=== PATIENT | male | born 1940 | race Caucasian/White ===

== ENCOUNTER → 2018-04-07 | Outpatient (REF) | payer MEDICARE ==
[2018-04-07 10:22] LABS: URINE BILIRUBIN - DIPSTICK NEGATIVE (NEGATIVE); URINE BLOOD DIPSTICK NEGATIVE (NEGATIVE); URINE COLOR YELLOW; URINE GLUCOSE - DIPSTICK NEGATIVE (NEGATIVE); URINE KETONE TRACE mg/dL (NEGATIVE); URINE LEUK ESTERASE NEGATIVE (Negative); URINE NITRITE - DIPSTICK NEGATIVE (Negative); URINE PROTEIN - DIPSTICK NEGATIVE (NEG-TRACE); URINE SPECIFIC GRAVITY 1.025; URINE UROBILINOGEN - DIPSTICK 0.2 E.U./dL (0.2)
[2018-04-07 10:29] LABS: URINE CLARITY CLEAR
== END | disposition home or self-care (01) ==
LOC: LAB 09:45
PROVIDERS: ATTEND Nurse Practitioner
DX: R10.31 Right lower quadrant pain (principal)

== ENCOUNTER → 2018-04-13 | Outpatient (REF) | payer MEDICARE ==
[2018-04-13 09:25] LABS: HEMATOCRIT 32.7 % (39.0-50.0); HEMOGLOBIN 9.7 g/dl (14.0-18.0); MEAN CELL VOLUME 83.2 fL CALC (80.0-100.0); MEAN CORPUSCULAR HGB 24.7 pG CALC (26.0-32.0); MEAN CORPUSCULAR HGB CONC 29.7 g/L CALC (32.0-36.0); PLATELET COUNT 220 thou/uL (130-400); RED BLOOD COUNT 3.93 mill/uL (4.70-6.10)
[2018-04-13 10:42] LABS: ALBUMIN 4.2 g/dL (3.2-5.0); ANION GAP 15 (6-22 (CALC)); BILIRUBIN, TOTAL 0.6 mg/dL (0.0-1.4); BUN 19 mg/dL (8-23); BUN/CREATININE RATIO 22 (12-20 (CALC)); CALCULATED LDLCHOLESTEROL 89 mg/dL (62-129 (CALC)); CARBON DIOXIDE 29 mmol/l (22-30); CHLORIDE 103 mmol/l (95-108); CHOLESTEROL HDL RATIO 5.8 (<4.4 (CALC)); CREATININE 0.9 mg/dL (0.7-1.3); GFR > 60 ML/MIN (>=60 (CALC)); GFR FOR AFR.AMER. > 60 ML/MIN (>=60 (CALC)); HDL CHOLESTEROL 25 mg/dL (>=40); POTASSIUM 4.9 mmol/l (3.5-5.1); SGOT/AST 29 u/l (19-48); SODIUM 142 mmol/l (137-146); TOTAL CHOLESTEROL 142 mg/dl (0-199); TOTAL PROTEIN 7.7 g/dL (6.3-8.2); TOTAL TRIGLYCERIDES 143 mg/dl (30-149); VLDL CHOLESTROL 29 mg/dl (0-38 (CALC))
[2018-04-13 10:49] LABS: ALKALINE PHOSPHATASE 102 u/l (38-126)
[2018-04-13 10:54] LABS: IMMATURE GRANULOCYTES 15.6 % (0.0-5.0); MANUAL DIFFERENTIAL YES
[2018-04-13 10:55] LABS: IMMATURE CELLS 6 %
[2018-04-13 11:10] LABS: TSH, 3RD GENERATION 2.77 uIU/mL (0.47 - 4.68)
[2018-04-13 11:34] LABS: BAND 9 % (0-8)
== END | disposition home or self-care (01) ==
LOC: LAB 08:52
PROVIDERS: ATTEND Nurse Practitioner
DX: D72.829 Elevated white blood cell count, unspecified (principal); E78.5 Hyperlipidemia, unspecified

== ENCOUNTER 2018-06-05 10:24 | Inpatient (IN) | payer MEDICARE ==
[~2018-06-05] VITALS: Ht 172.7 cm; Wt 55.7 kg
--- NOTE | 2018-06-05 10:41 | NUR ---
I SPOKE WITH NICKY AT [facility]. SHE VERIFIED THE CONSULTATION FOR @10:30 AM.
[2018-06-05 10:42] VITALS: BP 124/54
--- NOTE | 2018-06-05 11:07 | NUR ---
PT HAD COME IN A DIRECT ADMIT FROM OFFICE. PT CAME IN VIA WHEELCHAIR. ASSESSMENT DONE. PT IS A&O X3. PT DENIES PAIN AT THIS TIME. PT STATED HE TOLD DR. DE LEON THAT TUESDAY HE HAD A BM BLACK. PT STATED FOR A FEW WEEKS NOW HE HAS HAD A POOR APPETITE. NS 80ML/HR INFUSING WELL. TELE IN PLACE. SAFETY PRECAUTIONS REINFORCED AND CALL LIGHT IN REACH. IN ROOM.
[2018-06-05] MEDS ORDERED: TAMSULOSIN0.4 MG PO (11:22)
[2018-06-05 11:43] LABS: HEMATOCRIT 26.7 % (39.0-50.0); HEMOGLOBIN 7.8 g/dl (14.0-18.0); MEAN CELL VOLUME 78.8 fL CALC (80.0-100.0); MEAN CORPUSCULAR HGB CONC 29.2 g/L CALC (32.0-36.0); RED BLOOD COUNT 3.39 mill/uL (4.70-6.10); RED CELL DISTRI WIDTH 23.7 % (11.5-15.5)
[2018-06-05 12:03] LABS: IMMATURE GRANULOCYTES 8.8 % (0.0-5.0); PLATELET COUNT 338 thou/uL (130-400)
[2018-06-05 12:06] LABS: MANUAL DIFFERENTIAL YES
[2018-06-05 12:09] LABS: BAND 5 % (0-8)
[2018-06-05 12:10] LABS: POLYCHROMASIA FEW
[2018-06-05 12:31] LABS: ANION GAP 17 (6-22 (CALC)); BUN 19 mg/dL (8-23); BUN/CREATININE RATIO 25 (12-20 (CALC)); CARBON DIOXIDE 25 mmol/l (22-30); CHLORIDE 100 mmol/l (95-108); CREATININE 0.8 mg/dL (0.7-1.3); GFR > 60 ML/MIN (>=60 (CALC)); GFR FOR AFR.AMER. > 60 ML/MIN (>=60 (CALC)); POTASSIUM 4.7 mmol/l (3.5-5.1); SODIUM 137 mmol/l (137-146)
--- NOTE | 2018-06-05 12:35 | NUR ---
DR. HERRERA AT BEDSIDE TO DISCUSS POC WITH PT.
[2018-06-05 12:55] LABS: URINE BILIRUBIN - DIPSTICK NEGATIVE (NEGATIVE); URINE BLOOD DIPSTICK NEGATIVE (NEGATIVE); URINE COLOR YELLOW; URINE GLUCOSE - DIPSTICK NEGATIVE (NEGATIVE); URINE KETONE NEGATIVE (NEGATIVE); URINE LEUK ESTERASE NEGATIVE (NEGATIVE); URINE NITRITE - DIPSTICK NEGATIVE (Negative); URINE PROTEIN - DIPSTICK NEGATIVE (NEG-TRACE)
--- NOTE | 2018-06-05 14:41 | NUR ---
DR. ANGLIN AT BEDSIDE TO ASSESS PT AND DISCUSS POC WITH PT.
[2018-06-05 16:00] VITALS: BP 131/62
--- NOTE | 2018-06-05 16:00 | NUR ---
PT CONTINUE TO DRINK THE NUTYLELY. PT DENIES PAIN AT THIS TIME. CALL LIGHT IN REACH.
[2018-06-05 20:00] VITALS: BP 127/71
--- NOTE | 2018-06-05 20:10 | NUR ---
PT SITTING ON BSC. PT STATES "I DON'T THINK I'M DONE, WHEN I'M FINISHED I'D LIKE TO BE CLEANED UP, I'LL CALL WHEN I'M FINISHED" CALL LIGHT WITHIN REACH. SAFETY PRECAUTIONS IN PLACE. WILL CONTINUE TO MONITOR.
[2018-06-06] VITALS (18 sets, daily range): BP systolic 123–143; BP diastolic 50–69
--- NOTE | 2018-06-06 01:21 | NUR ---
REPORT RECIEVED HARJIT THOMASON RN. PT SITTING ON BSC, ALERT AND ORIENTED. PT DENIES ANY NEEDS AT THIS TIME. SAFETY PRECAUTIONS IN PLACE. CALL MOORE WITHIN REACH. WILL CONTINUE TO MONITOR.
--- NOTE | 2018-06-06 01:45 | NUR ---
PT RESTING IN BED. PT ASKES "IS IT TIME FOR THE ENDOSCOPY?". EDUCATED PT ON PLAN OF CARE. SAFETY PRECAUTIONS IN PLACE. WILL CONTINUE TO MONITOR.
--- NOTE | 2018-06-06 05:23 | NUR ---
PT RESTING IN BED. ALERT AND ORIENTED. PT DENIES ANY NEEDS AT THIS TIME, PT ENCOURAGED TO US CALLL MOORE IF NEEDS SHOULD ARISE. SAFETY PRECAUTIONS IN PLACE WILL CONTINUE TO MONITOR.
[2018-06-06 06:41] LABS: HEMATOCRIT 23.2 % (39.0-50.0); MEAN CELL VOLUME 79.2 fL CALC (80.0-100.0); MEAN CORPUSCULAR HGB 22.9 pG CALC (26.0-32.0); MEAN CORPUSCULAR HGB CONC 28.9 g/L CALC (32.0-36.0); RED BLOOD COUNT 2.93 mill/uL (4.70-6.10); RED CELL DISTRI WIDTH 23.8 % (11.5-15.5)
[2018-06-06 06:44] LABS: HEMOGLOBIN 6.7 g/dl (14.0-18.0); IMMATURE GRANULOCYTES 8.3 % (0.0-5.0)
[2018-06-06 06:45] LABS: MANUAL DIFFERENTIAL YES; PLATELET COUNT 265 thou/uL (130-400)
--- NOTE | 2018-06-06 06:45 | NUR ---
PT REPORT RECIEVED FROM HAYDEE PEREZ. PT RESTING. NO S/S OF DISTRESS. CALL LIGHT IN REACH. WILL CONTINUE TO MONITOR.
--- NOTE | 2018-06-06 07:00 | NUR ---
HAYDEE PEREZ CALLED DR. DONATO REGARDING PT HGB BEING 6.7. ANA STATES WOULD LIKE 1 UNIT PRBC INFUSED. HAYDEE PEREZ STATES SHE WILL PUT ORDERS IN NOW. WILL CONTINUE TO MONITOR.
--- NOTE | 2018-06-06 07:06 | NUR ---
CALL RECIVED FROM ENMA IN LAB FOR A CRITICAL LAB VALUE WBC 39.0, HGB 6.7. DR DONATO NOTIFIED. NEW ORDERS OBTAINED TO GIVE I UNIT OF BLOOD.
--- NOTE | 2018-06-06 08:40 | NUR ---
PT A/O X3. SPEECH IS CLEAR. RESP EVEN AND UNLABORED. LUNG SOUNDS CLEAR. TELE IN PLACE. BOWEL SOUNDS ACTIVE X4. STRONG RADIAL AND PEDAL PULSES. #22 LFA NS @80. SITE APPEARS HEALTHY. SKIN INTACT. PT DENIES ANY PAIN OR NEEDS. POC DISCUSSED. SAFETY PRECAUTIONS IN PLACE. CALL LIGHT IN REACH. WILL CONTINUE TO MONITOR.
--- NOTE | 2018-06-06 08:50 | NUR ---
PT TRANSPORTED TO OR VIA STRETCHER ACCOMPIANED BY OR NURSES IN STABLE CONDITION
--- NOTE | 2018-06-06 11:15 | NUR ---
PT TRANSPORTED BACK FROM OR VIA STRETCHER ACCOMPIANED BY OR NURSES IN STABLE CONDITION. PT ADJUSTED IN BED FOR COMFORT. VS BEING TAKEN. CALL LIGHT IN REACH. WILL CONTINUE TO MONITOR.
--- NOTE | 2018-06-06 12:50 | NUR ---
PT RESTING IN BED. NO C/O PAIN OR NEEDS. TELE IN PLACE. BSC NEAR BED. CALL LIGHT IN REACH. WILL CONTINUE TO MONITOR.
[2018-06-06] MEDS ORDERED: ALEVE220 M2 PO (13:25)
--- NOTE | 2018-06-06 13:55 | NUR ---
PT TRANSPORTED TO CT VIA WC ACCOMPIANED BY VOLUNTEER IN STABLE CONDITION
--- NOTE | 2018-06-06 14:18 | NUR ---
PT TRANSPORTED BACK FROM CT VIA WC ACCOMPIANED BY VOLUNTEER IN STABLE CONDITION
--- NOTE | 2018-06-06 14:41 | NUR ---
1ST UNIT OF PRBC'S STARTED W/ HAYDEE DELCID. INFUSING WELL. WILL CONTINUE TO MONITOR.
--- NOTE | 2018-06-06 14:55 | NUR ---
PT RESTING. NO C/O REGARDING PRBCS INFUSING. NO S/S OF DISTRESS. CALL LIGHT IN REACH. WILL CONTINUE TO MONITOR.
--- NOTE | 2018-06-06 16:00 | NUR ---
PT SLEEPING. NO C/O PAIN OR NEEDS. TELE IN PLACE. CALL LIGHT IN REACH. WILL CONTINUE TO MONITOR.
--- NOTE | 2018-06-06 16:32 | NUR ---
dr. avendaño in to see pt
--- NOTE | 2018-06-06 17:31 | NUR ---
2ND UNIT OF PRBCs STARTED W/ HAYDEE DLECID. INFUSING FREELY
--- NOTE | 2018-06-06 18:00 | NUR ---
CALLED IN REGARDS TO GIL ORDER. DOES WANT PT TO HAVE A GIL DUE TO URINARY RETENTION. PT BLADDER SCANNED; 271 ML RETAINED. 16 F GIL INSERTED USING STERILE TECHNIQUE. PT TOLERATED WEL.. CLEAR YELLOW URINE DRAINING TO GRAVITY. WILL CONTINUE TO MONITOR
--- NOTE | 2018-06-06 19:00 | NUR ---
REPORT RECEIVED FROM ISAIAS DREW. PT RESTING IN BED. PT DENIES ANY PAIN OR DISCOMFORT AT THIS TIME. SAFETY PRECAUTIONS IN PLACE WILL CONTINUE TO MONITOR.
--- NOTE | 2018-06-06 19:35 | NUR ---
PT RESTING IN BED. ALERT AND ORIENTED. BLOOD TRANSFUSING THROUGH #18 RFA @ 125. PT TOLERATING WELL. PT DENIES ANY PAIN OR DISCOMFORT. CALL LIGHT WITHIN REACH. SAFETY PRECAUTIONS IN PLACE. WILL CONTINUE TO MONITOR.
[2018-06-07] VITALS (12 sets, daily range): BP systolic 117–142; BP diastolic 52–62
[2018-06-07 00:20] LABS: HEMATOCRIT 27.9 % (39.0-50.0); HEMOGLOBIN 8.4 g/dl (14.0-18.0)
--- NOTE | 2018-06-07 00:29 | NUR ---
PT RESTING IN BED. RESPIRATIONS EVEN AND UNLABORED. NO SIGNS OR SYMPTOMS OF DISTRESS. CALL LIGHT WITHIN REACH. WILL CONTINUE TO MONITOR.
--- NOTE | 2018-06-07 02:40 | NUR ---
PT FOUND STANDING NEXT TO THE BED TANGLED IN IV TUBING AND PULLING ON GIL CATHETER, CONFUSED, REORIENTED PT. BED ALARM ACTIVE FOR PT SAFETY. CALL MOORE WITHIN REACH. WILL CONTINUE TO MONITOR.
[2018-06-07 05:01] LABS: HEMATOCRIT 28.1 % (39.0-50.0); HEMOGLOBIN 8.5 g/dl (14.0-18.0); MEAN CELL VOLUME 80.3 fL CALC (80.0-100.0); MEAN CORPUSCULAR HGB 24.3 pG CALC (26.0-32.0); MEAN CORPUSCULAR HGB CONC 30.2 g/L CALC (32.0-36.0); PLATELET COUNT 237 thou/uL (130-400); RED CELL DISTRI WIDTH 21.3 % (11.5-15.5)
--- NOTE | 2018-06-07 05:27 | NUR ---
PT RESTING IN BED, NO SIGNS OR SYMPTOMS OF DISTRESS. BED ALARM ACTIVE FOR PT SAFETY. WILL CONTINUE TO MONITOR.
[2018-06-07 05:35] LABS: ALKALINE PHOSPHATASE 95 u/l (38-126); AMYLASE 48 u/l (30-110); ANION GAP 13 (6-22 (CALC)); BILIRUBIN, TOTAL 0.7 mg/dL (0.0-1.4); BUN 8 mg/dL (8-23); BUN/CREATININE RATIO 13 (12-20 (CALC)); CARBON DIOXIDE 23 mmol/l (22-30); CHLORIDE 105 mmol/l (95-108); CREATININE 0.6 mg/dL (0.7-1.3); GFR > 60 ML/MIN (>=60 (CALC)); GFR FOR AFR.AMER. > 60 ML/MIN (>=60 (CALC)); LIPASE 68 u/l (23-300); MAGNESIUM 2.1 mg/dL (1.6-2.3); POTASSIUM 3.8 mmol/l (3.5-5.1); SGOT/AST 19 u/l (19-48); SODIUM 137 mmol/l (137-146)
--- NOTE | 2018-06-07 05:43 | NUR ---
ENMA FROM LAB CALL WITH CRITACAL LAB VALUE, WBC 32.5
[2018-06-07 05:44] LABS: IMMATURE GRANULOCYTES 7.9 % (0.0-5.0)
[2018-06-07 05:45] LABS: MANUAL DIFFERENTIAL YES
[2018-06-07 05:46] LABS: HYPOCHROMIA FEW; MICROCYTOSIS FEW; OVALOCYTES FEW; PLATELET ESTIMATE NORMAL
[2018-06-07 05:51] LABS: ALBUMIN 3.3 g/dL (3.2-5.0)
--- NOTE | 2018-06-07 06:03 | NUR ---
DR. DONATO NOTIFIED OF CRITICAL LAB VALUE. WBC 32.5. NO NEW ORDERS AT THIS TIME.
--- NOTE | 2018-06-07 08:30 | NUR ---
ASSESSMENT DONE. REPS EVEN AND UNLABORED. PT IS A&O X3 BUT FORGETFUL AT TIMES. PT DENIES PAIN AT THIS TIME. PT IS NPO. GIL IS PATENT WITH YELLOW URINE. PT DENIES ANY NEEDS AT THIS TIME. SAFETY PRECAUTIONS REINFORCED AND CALL LIGHT IN REACH.
--- NOTE | 2018-06-07 10:12 | NUR ---
DR. HERRERA SPEAKING TO PT Re: CONCERNS.
--- NOTE | 2018-06-07 10:42 | NUR ---
PT WENT VIA BED TO OR BY HAYDEE SERRA AND HAYDEE FIGUEROA. AT SIDE.
--- NOTE | 2018-06-07 14:29 | NUR ---
PT CAME FROM OR VIA BED. REPORT RECEIVED FROM HAYDEE KAUR. PT IS MIAWMoisés. IN ROOM. X1 DRESSING IN ABD CDI. SCD IN PLACE. CALL LIGHT IN REACH.
--- NOTE | 2018-06-07 16:04 | NUR ---
MEDICATED PT WITH DILAUDID FOR PAIN IN ABD SEE EMAR. DISCUSS WITH PT RE: THE USE OF I.S. ICE CHIPS PROVIDED. PT IN ROOM. PT DENIES ANY OTHER NEEDS AT THIS TIME. CALL LIGHT IN REACH.
--- NOTE | 2018-06-07 19:00 | NUR ---
REPORT RECEIVED FROM HAYDEE LOMBARDI. PT RESTING IN BED WITH EYES CLOSED. NO SIGNS OR SYMPTOMS OF DISTRESS. SAFETY PRECAUTIONS IN PLACE. WILL CONTINUE TO MONITOR.
--- NOTE | 2018-06-07 20:35 | NUR ---
PT FOUND IN BATHROOM SITTING ON THE TOILET, PULLING ON GIL. CONFUSED STATING HE WOKE UP AND DIDN'T KNOW WHERE HE WAS AND PANICKED. PT BLEEDING FROM RIGHT WRIST WHERE HE REMOVED IV #18 RW. PRESSURE APPLIED UNTIL BLEEDING STOPPED. NO BLOOD APPEARS TO BE COMING FROM GIL, GIL STILL IN PLACE. PT ASSISTED INTO SHOWER TO BE CLEANED UP, AVELINO LUCERO ASSISTED WITH SHOWER. DR DONATO NOTIFIED, WANTS PT TO KEEP GIL. PT ASSISTED BACK IN BED WITH BED ALARM ACTIVE FOR PT SAFETY. CALL LIGHT WITHIN REACH. WILL CONTINUE TO MONITOR.
[2018-06-08] VITALS (11 sets, daily range): BP systolic 88–117; BP diastolic 41–61
--- NOTE | 2018-06-08 01:01 | NUR ---
HAYDEE TROTTER, STARTED NEW IV #22 LAC. PT TOLERATED WELL.
--- NOTE | 2018-06-08 04:10 | NUR ---
PT RESTING IN BED, WITH EYES CLOSED. RESPIRATIONS EVEN AND UNLABORED ON RA. BED ALARM ACTIVE FOR PT SAFETY. WILL CONTINUE TO MONITOR.
[2018-06-08 05:10] LABS: HEMATOCRIT 26.9 % (39.0-50.0); HEMOGLOBIN 8.3 g/dl (14.0-18.0); MEAN CELL VOLUME 79.4 fL CALC (80.0-100.0); MEAN CORPUSCULAR HGB 24.5 pG CALC (26.0-32.0); MEAN CORPUSCULAR HGB CONC 30.9 g/L CALC (32.0-36.0); PLATELET COUNT 214 thou/uL (130-400); RED BLOOD COUNT 3.39 mill/uL (4.70-6.10); RED CELL DISTRI WIDTH 22.2 % (11.5-15.5)
[2018-06-08 05:42] LABS: ALBUMIN 2.7 g/dL (3.2-5.0); ALKALINE PHOSPHATASE 76 u/l (38-126); ANION GAP 14 (6-22 (CALC)); BILIRUBIN, TOTAL 0.8 mg/dL (0.0-1.4); BUN 12 mg/dL (8-23); BUN/CREATININE RATIO 18 (12-20 (CALC)); CARBON DIOXIDE 22 mmol/l (22-30); CHLORIDE 103 mmol/l (95-108); CREATININE 0.7 mg/dL (0.7-1.3); GFR > 60 ML/MIN (>=60 (CALC)); GFR FOR AFR.AMER. > 60 ML/MIN (>=60 (CALC)); MAGNESIUM 1.8 mg/dL (1.6-2.3); SGOT/AST 16 u/l (19-48); SODIUM 135 mmol/l (137-146); TOTAL PROTEIN 5.2 g/dL (6.3-8.2)
[2018-06-08 05:54] LABS: BAND 3 % (0-8); IMMATURE GRANULOCYTES 6.6 % (0.0-5.0); MANUAL DIFFERENTIAL YES
[2018-06-08 05:55] LABS: ANISOCYTOSIS FEW; HYPOCHROMIA FEW; MICROCYTOSIS FEW; OVALOCYTES FEW; PLATELET ESTIMATE NORMAL
--- NOTE | 2018-06-08 06:00 | NUR ---
CALLED PHARMACY TO ASK IF I COULD STILL GIVE 0600 DOSE OF ZOSYN DUE TO 0000 DOSE OF ZOSYN BEING GIVEN AT 0303. PHARMACY CONFIRMED IT COULD BE GIVEN.
--- NOTE | 2018-06-08 07:00 | NUR ---
REPORT RECEIVED FROM HAYDEE PEREZ. PT IN SEMI-FOWLERS IN BED. DENIES PAIN. REPORTS MILD SORENESS TO ABDOMEN. DRSG INTACT TO MIDLINE ABDOMINAL INCISION, OUTSIDE OF DRSG SMALL AMOUNT OF BLOOD R/T IVS BECOMING DISLODGED DURING PM. REPORTING OF CONCERNS ENCOURAGED. FALL PRECAUTIONS REIFORCED. CALL LIGHT REVIEWED AND IN REACH. PT STATES UNDERSTANDING.
--- NOTE | 2018-06-08 12:30 | NUR ---
DR. ANGLIN IN TO SEE PT. PLAN OF CARE UPDATED. AND SUDDVXZA-PA-RFS PRESENT.
--- NOTE | 2018-06-08 13:19 | NUR ---
DR. HERRERA IN TO SEE PT AT THIS TIME.
--- NOTE | 2018-06-08 17:05 | NUR ---
PT IN SEMI FOWLERS. SLEEPING. CALL LIGHT WITHIN REACH.
--- NOTE | 2018-06-08 17:54 | NUR ---
BLOODY LIQUID STOOLS X 2. DR. HERRERA NOTIFIED. ORDER FOR STAT H/H. PT UPDATED AND REASSURANCE PROVIDED.
[2018-06-08 18:08] LABS: HEMATOCRIT 23.7 % (39.0-50.0)
--- NOTE | 2018-06-08 18:39 | NUR ---
DR. HERRERA NOTIFIED OF HGB OF 7.0/HCT 23.7. ORDER FOR 2 U PRBC'S WITH LASIX 20 MG IV IN BETWEEN UNITS GIVEN.
--- NOTE | 2018-06-08 19:52 | NUR ---
PT ALERT AND ORIENTED X3, DISCUSSED BLOOD TRANSFUSION PT IN AGREEMENT. CONSENT IN CHART, BAND IN PLACE. SCD'S IN PLACE, IS AT BEDSIDE, ENCOURAGED ITS USE. PT HAS A MIDLINE DRESSING TO ABD, CDI. DISCUSSED POC, PT IN AGREEMENT. ASSESSMENT COMPLETED, VSS, NS INIATED TO LAC FOR BLOOD TRANSFUSION, IVF TO RAC INFUSING. GIL DRAINING TO GRAVITY,LEG STRAP IN PLACE. CALL LIGHT IN REACH,CONTINUE TO MONITOR.
--- NOTE | 2018-06-08 20:04 | NUR ---
ENTERED ROOM WITH RN, DISCUSSED POSSIBLE ADVERSE REACTIONS TO NOTIFY STAFF, VERIFIED BLOOD WITH PT AND ID BAND, BLOOD SPIKED BY RN. CALL LIGHT IN REACH,CONTINUE TO MONITOR.
--- NOTE | 2018-06-08 21:04 | NUR ---
1HR VITALS COMPLETED, PT VOICES NO NEEDS OR COMPLAINTS AT THIS TIME, IV SITE PATENT, CALL LIGHT IN REACH,CONTINUE TO MONITOR. VSS,
--- NOTE | 2018-06-08 23:15 | NUR ---
NEW BLOOD TUBING APPLIED, NS INFUSING, RN TO BEDSIDE AND DISCUSSED 2ND UNIT OF PRBCS, PT IN AGREEMENT. VERIFIED WITH RN, 2ND UNIT INFUSING. CALL LIGHT IN REACH,CONTINUE TO MONITOR.
[2018-06-09] VITALS (7 sets, daily range): BP systolic 97–124; BP diastolic 43–59
--- NOTE | 2018-06-09 01:47 | NUR ---
BLOOD TRANSFUSION COMPLETED, VSS, IV FLUSHED AND SL. PT REQUESTING SPONGES FOR HIS DRY MOUTH. CALL LIGHT IN REACH,CONTINUE TO MONITOR.
[2018-06-09 05:42] LABS: HEMATOCRIT 28.1 % (39.0-50.0); HEMOGLOBIN 8.9 g/dl (14.0-18.0); MEAN CELL VOLUME 81.9 fL CALC (80.0-100.0); MEAN CORPUSCULAR HGB 25.9 pG CALC (26.0-32.0); MEAN CORPUSCULAR HGB CONC 31.7 g/L CALC (32.0-36.0); PLATELET COUNT 201 thou/uL (130-400); RED BLOOD COUNT 3.43 mill/uL (4.70-6.10); RED CELL DISTRI WIDTH 19.5 % (11.5-15.5)
[2018-06-09 06:18] LABS: ALBUMIN 2.6 g/dL (3.2-5.0); ALKALINE PHOSPHATASE 86 u/l (38-126); ANION GAP 13 (6-22 (CALC)); BILIRUBIN, TOTAL 0.8 mg/dL (0.0-1.4); BUN 17 mg/dL (8-23); BUN/CREATININE RATIO 20 (12-20 (CALC)); CARBON DIOXIDE 19 mmol/l (22-30); CHLORIDE 106 mmol/l (95-108); CREATININE 0.9 mg/dL (0.7-1.3); GFR > 60 ML/MIN (>=60 (CALC)); GFR FOR AFR.AMER. > 60 ML/MIN (>=60 (CALC)); MAGNESIUM 1.9 mg/dL (1.6-2.3); POTASSIUM 4.2 mmol/l (3.5-5.1); SGOT/AST 24 u/l (19-48); SODIUM 134 mmol/l (137-146); TOTAL PROTEIN 5.1 g/dL (6.3-8.2)
[2018-06-09 06:52] LABS: IMMATURE GRANULOCYTES 6.8 % (0.0-5.0); MANUAL DIFFERENTIAL YES
[2018-06-09 06:56] LABS: PLATELET ESTIMATE NORMAL
[2018-06-09 06:59] LABS: ANISOCYTOSIS FEW; HYPOCHROMIA MODERATE; MICROCYTOSIS FEW
[2018-06-09 07:00] LABS: OVALOCYTES FEW
--- NOTE | 2018-06-09 08:40 | NUR ---
REPORT WAS RECEIVED FROM FRACISCO. ASSESSMENT DONE. PT IS A&O X3. TELE IN PLACE. PT STATED PAIN IN ABD 05/31. PT DENIES PAIN MEDICATION AT THIS TIME. DRESSING IN ABD IN PLACE. ENCOURAGE PT TO USE I.S. PT VERBALZIED UNDERSTANDING. IVF INFUSING WELL. ICE CHIPS PROVIDED .SAFETY PRECAUTIONS REINFROCED AND CALL LIGHT IN REACH.
--- NOTE | 2018-06-09 09:30 | NUR ---
DR. HERRERA AT BEDSIDE TO ASSESS PT. AWARE OF BLOODY STOOLS. MD TOLD PT THAT IT IS NORMAL DUE TO SURGERY.
--- NOTE | 2018-06-09 11:50 | NUR ---
DR. ANGLIN AT BEDSIDE TO ASSESS PT. CALL LIGHT IN REACH.
--- NOTE | 2018-06-09 12:18 | NUR ---
PT WAS MEDICATED WITH TORADOL FOR PAIN ABD SEE EMAR. IN ROOM AND CALL LIGHT IN REACH.
[2018-06-09 12:51] LABS: HEMATOCRIT 27.5 % (39.0-50.0); HEMOGLOBIN 8.6 g/dl (14.0-18.0)
--- NOTE | 2018-06-09 13:09 | NUR ---
PT HAD A BLOODY MODERATED BM WITH SMALL BLOOD CLOTS NOTED. CALL LIGHT IN REACH.
--- NOTE | 2018-06-09 16:00 | NUR ---
PT IS RESTING IN BED. PT STATED PAIN IN ADB 05/31 BUT DENIES PAIN MEDICATION AT THIS TIME. CALL LIGHT IN REACH.
--- NOTE | 2018-06-09 19:05 | NUR ---
REPORT FROM HARJIT HUBBARD. PT RESTING IN BED. NO DISTRESS NOTED. PT ALERT AND ORIENTED. PT DENIES ANY PAIN OR DISCOMFORT. DRESSING TO INCISION NOTED TO BE INTACT. IV SITE APPEARS HEALTHY. DISCUSSED POC. PT VERBALIZED UNDERSTANDING. CALL LIGHT WITHIN REACH. WILL CONTINUE TO MONITOR.
--- NOTE | 2018-06-09 19:39 | NUR ---
PT CALLED FOR ASSISTANCE TO BSC. UPON STANDING UP PT BECAME INCONTINENT OF MODERATE AMOUNT LIQUID BLOODY STOOL. PT PLACED ON BSC RESULTING IN SMALL AMOUNT OF 100ML TO BE MEASURED. LINENS CHANGED, HOUSE KEEPING TO MOP FLOOR AND PT ASSISTED BACK TO BED WITH CLEAN GOWN. CALL LIGHT WITHIN REACH. WILL CONTINUE TO MONITOR.
--- NOTE | 2018-06-09 23:13 | NUR ---
ASSISTED PT TO BSC. SMALL AMOUNT OF LIQUID BLOODY STOOL NOTED. PT MEDICATED FOR ABD PAIN 3-10 WITH APAP. REPOSITIONED PT ON RIGHT SIDE WITH PILLOWS. PT TOLERATED WELL. CALL LIGHT WITHIN REACH. WILL CONTINUE TO MONITOR.
[2018-06-10] VITALS (16 sets, daily range): BP systolic 110–142; BP diastolic 44–66
--- NOTE | 2018-06-10 | NUR ---
PT RESTING IN BED WITH EYES CLOSED. NO S/S OF DISTRESS NOTED. CALL MOORE IN REACH. WILL CONTINUE TO MONITOR.
--- NOTE | 2018-06-10 03:46 | NUR ---
ASSISTED PT TO BSC. SMALL WATERY BLOODY STOOL WITH CLOTS NOTED. ASSISTED BACK TO BED AND REPOSITIONED WITH PILLOWS. CALL LIGHT WITHIN REACH. WILL CONTINUE TO MONITOR.
[2018-06-10 05:16] LABS: HEMATOCRIT 20.9 % (39.0-50.0); IMMATURE GRANULOCYTES 7.4 % (0.0-5.0); MEAN CELL VOLUME 83.6 fL CALC (80.0-100.0); MEAN CORPUSCULAR HGB 25.6 pG CALC (26.0-32.0); MEAN CORPUSCULAR HGB CONC 30.6 g/L CALC (32.0-36.0); PLATELET COUNT 210 thou/uL (130-400); RED CELL DISTRI WIDTH 20.9 % (11.5-15.5)
[2018-06-10 05:17] LABS: HEMOGLOBIN 6.4 g/dl (14.0-18.0); MANUAL DIFFERENTIAL YES
--- NOTE | 2018-06-10 05:18 | NUR ---
NOTIFIED CRANE CHASER PHYSICIAN OF CRITICAL LABS. NEW ORDERS RECEIEVED AT THIS TIME. CONSENT SIGNED FOR BLOOD TRANSFUSION.
[2018-06-10 05:24] LABS: ALBUMIN 2.4 g/dL (3.2-5.0); ALKALINE PHOSPHATASE 78 u/l (38-126); ANION GAP 11 (6-22 (CALC)); ANISOCYTOSIS FEW; BILIRUBIN, TOTAL 0.5 mg/dL (0.0-1.4); BUN 14 mg/dL (8-23); BUN/CREATININE RATIO 20 (12-20 (CALC)); CARBON DIOXIDE 20 mmol/l (22-30); CHLORIDE 107 mmol/l (95-108); CREATININE 0.7 mg/dL (0.7-1.3); GFR > 60 ML/MIN (>=60 (CALC)); GFR FOR AFR.AMER. > 60 ML/MIN (>=60 (CALC)); HYPOCHROMIA MODERATE; MAGNESIUM 1.8 mg/dL (1.6-2.3); MICROCYTOSIS FEW; OVALOCYTES FEW; POIKILOCYTOSIS FEW; POTASSIUM 4.2 mmol/l (3.5-5.1); SGOT/AST 14 u/l (19-48); SODIUM 134 mmol/l (137-146); TOTAL PROTEIN 4.8 g/dL (6.3-8.2)
[2018-06-10 05:25] LABS: PLATELET ESTIMATE NORMAL
--- NOTE | 2018-06-10 07:00 | NUR ---
SHIFT CHANGE REPORT, PT AWAKE ALERT AND ORIENTED, VOICES CONCERN ABOUT CONDITION AND [facility] UPDATE, ADVISED MD WILL BE HERE LATED AND WILL ADDRESS ALLL CONCERNS.
[2018-06-10 08:23] LABS: C. DIFFICILE TOXIN A&B NEGATIVE (NEGATIVE)
--- NOTE | 2018-06-10 09:15 | NUR ---
DR HERRERA HERE ROUNDING, ADDRESSED PT'S QUESTIONS AND CONCERNS AND DISCSSED PLAN OF CARE WITH HIM. PT EXPRESSED SATISFACTION WITH INFORMATION, WILL CONTINUE TO MONITOR.
--- NOTE | 2018-06-10 10:50 | NUR ---
SPOUSE AT BEDSIDE AT THIS TIME, FIRST UNIT PRBC JUST STARTED, PT BEING MONITORED AT THIS TIME.
--- NOTE | 2018-06-10 13:06 | NUR ---
LIQUID BLOODY BM OF 325+ ML WITH MAY COTSS OR VARYING SIZES, [place]'S ATTENTION CALLED AND SHE OBSERVED.
--- NOTE | 2018-06-10 14:17 | NUR ---
SECOND UNIT BLOOD BEGAN @ 9214
--- NOTE | 2018-06-10 16:45 | NUR ---
ED JUST CALLED REPORTING HEART RATE @ 120BPM, ON ASSESSMENT PT WAS BEING ASSISTED FROM BSC TO BED, NO C/O OR SIGN DISCOMFORT AT THIS TIME, WILL CONTINUE TO MONITOR.
--- NOTE | 2018-06-10 19:00 | NUR ---
PT RESTING IN BED. NO NEEDS AT THIS TIME. CALL MOORE IN REACH. WILL CONTINUE TO MONITOR
--- NOTE | 2018-06-10 20:52 | NUR ---
PT RESTING IN BED WITH EYES CLOSED. PT MEDICATED WITH TYLENOL PER REQUEST FOR 4/10 PAIN. ASESSMENT COMPLETED AT THIS TIME. PT HANDS APPEAR SWOLLEN, DISCOLORATION, BRUSING NOTED TO PENIS AND SCROTUM, PT STATES THAT IS NORMAL. GIL DRAINING TO GRAVITY CLEAR YELLOW URINE. SKIN INTACT. HYPOACTIVE BOWEL SOUNDS. NO OTHER NEEDS AT THIS TIME. CALL MOORE IN REACH. WILL CONTINUE TO MONITOR.
[2018-06-11 03:50] VITALS: BP 133/70
--- NOTE | 2018-06-11 04:00 | NUR ---
PT UP TO BSC AT THIS TIME WITH ONE ASSIST. SMALL BM AT THIS TIME. NO OTHER NEEDS.AT THIS TIME. CALL MOORE IN REACH. WILL CONTINUE TO MONITOR.
[2018-06-11 05:55] LABS: HEMATOCRIT 22.4 % (39.0-50.0); HEMOGLOBIN 7.4 g/dl (14.0-18.0); MEAN CELL VOLUME 83.6 fL CALC (80.0-100.0); MEAN CORPUSCULAR HGB 27.6 pG CALC (26.0-32.0); PLATELET COUNT 231 thou/uL (130-400); RED BLOOD COUNT 2.68 mill/uL (4.70-6.10); RED CELL DISTRI WIDTH 17.7 % (11.5-15.5)
[2018-06-11 06:11] LABS: ANION GAP 11 (6-22 (CALC)); BUN 12 mg/dL (8-23); BUN/CREATININE RATIO 16 (12-20 (CALC)); CARBON DIOXIDE 22 mmol/l (22-30); CHLORIDE 106 mmol/l (95-108); CREATININE 0.8 mg/dL (0.7-1.3); GFR > 60 ML/MIN (>=60 (CALC)); GFR FOR AFR.AMER. > 60 ML/MIN (>=60 (CALC)); MAGNESIUM 1.9 mg/dL (1.6-2.3); POTASSIUM 4.2 mmol/l (3.5-5.1); SODIUM 135 mmol/l (137-146)
[2018-06-11 06:22] LABS: IMMATURE GRANULOCYTES 7.5 % (0.0-5.0); MANUAL DIFFERENTIAL YES
[2018-06-11 06:23] LABS: ANISOCYTOSIS FEW; HYPOCHROMIA MODERATE; MICROCYTOSIS FEW; OVALOCYTES FEW; PLATELET ESTIMATE NORMAL; POIKILOCYTOSIS FEW
--- NOTE | 2018-06-11 07:00 | NUR ---
SHIFT CHANGE REPORT, PT AWAKE ALERT AND ORIENTED RELAXING IN BED, STATES HE FEELS A LITTLE BETTER THAN HE DID YESTERDAY AND HE ALSO APPEARS BETTER FROM VISUAL OBSERVATION, IVF INFUSING, TELE MONITOR IN PLACE, CALL MOORE IN REACH.
[2018-06-11 07:49] VITALS: BP 125/65
--- NOTE | 2018-06-11 09:22 | NUR ---
DR HERRERA CALLED TO INQUIRE ABOUT PT'S CONDITION, SAID WILL TALK TO VIANNEY AND MAYBE TRANSFUSE 1 MORE UNIT PRBC.
--- NOTE | 2018-06-11 10:35 | NUR ---
GIL CATHETER REMOVED @ 1015, URINAL GIVEN, WILL ASSESS FOR URINATION.
[2018-06-11 11:42] VITALS: BP 138/57
--- NOTE | 2018-06-11 12:00 | NUR ---
SAT UP IN RECLINER FOR MEAL THEN WENT BACK TO BED, NO C/O PAIN/DISCOMFORT, WILL CONTINUE TO MONITOR AND ASSESS FOR POST-CATHETER REMOVAL URINATION.
[2018-06-11 15:12] VITALS: BP 137/56
--- NOTE | 2018-06-11 15:56 | NUR ---
BLADDER SCANNED, PVR = 156, PT ENCOURAGED TO DRINK FLUIDS AND OFFERED JUICE, RESTING IN BED NOW, ALL NEEDS ADDRESSED.
--- NOTE | 2018-06-11 16:15 | NUR ---
DR LOPEZ AND [place] NUNEZ ROUNDING, I REPORTED AND SHOWED THEM PURPLE DISCOLORATION OF SCROTUM AND PENIS, ALSO INFORMED THEM I SPOKE WITH DR HERRERA THIS AM AND HE SAID HE WOULD CONTACT THEM TO DISCUSS CARE.
--- NOTE | 2018-06-11 18:00 | NUR ---
APPETITE REMAINS VERY POOR WITH INGESTNG SMALL AMOUNTS OF EACH MEAL, ENCOURAGED TO HAVE MORE LIQUIDS.
[2018-06-11 19:00] VITALS: BP 143/63
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
--- NOTE | 2018-06-11 20:10 | NUR ---
DR. HERRERA NOTIFIED OF PT BEING INCONTINENT OF BLOODY STOOLS. NEW ORDERS RECEIVED AT THIS TIME, TO HAVE H&H DRAWN, IF PT HGB IS LESS THAN 7 GIVE PT 2 UNITS OF BLOOD AND IF HGB IS LESS THAN 6 TO CALL MD BACK.
[2018-06-11 20:52] LABS: HEMATOCRIT 21.4 % (39.0-50.0)
[2018-06-11 21:11] LABS: HEMOGLOBIN 6.7 g/dl (14.0-18.0)
[2018-06-12] VITALS (14 sets, daily range): BP systolic 127–160; BP diastolic 54–70
--- NOTE | 2018-06-12 01:25 | NUR ---
PT RESTING IN BED VS OBTAINED AND BLOOD ADMINISTRATION STARTED. PT TOLERATING WELL. SAFETY PRECAUTIONS IN PLACE, WILL CONTINUE TO MONITOR.
--- NOTE | 2018-06-12 05:00 | NUR ---
FIRST BAG OG BLOOD FINISHED. PT TOLERATED WELL. NO SIGNS OR SYMPTOMS OF DISTRESS. WILL CONTINUE TO MONITOR.
--- NOTE | 2018-06-12 07:15 | NUR ---
REPORT RECEIVED FROM ANA. PT IS RESTING IN BED WITH NO S/S OF DISTRESS NOTED. SECOND UNIT OF BLOOD INFUSING WELL. CALL LIGHT IN REACH.
--- NOTE | 2018-06-12 08:15 | NUR ---
IV SITE LEAKING CHANGE BLOOD TRANSFUSION TO [facility] SITE NOW INFUSING WELL. ASSESSMENT DONE. PT IS A&O X3. PT STATED PAIN IN ABD IS 4/10 BUT DENIES PAIN MEDICATION AT THIS TIME. TELE IN PLACE. I.S ENCOURAGE. DRESSING IN ABD IS CDI. SAFETY PRECAUTIONS REINFORCED AND CALL LIGHT IN REACH.
--- NOTE | 2018-06-12 11:10 | NUR ---
DR. HERRERA AT BEDSIDE TO ASSESS PT AND DISCUSS POC WITH PT AND . PT TOLD MD THAT HE FEELS WEAK. CALL LIGHT IN REACH.
[2018-06-12 12:22] LABS: ANION GAP 9 (6-22 (CALC)); BUN 10 mg/dL (8-23); BUN/CREATININE RATIO 17 (12-20 (CALC)); CARBON DIOXIDE 21 mmol/l (22-30); CHLORIDE 107 mmol/l (95-108); CREATININE 0.6 mg/dL (0.7-1.3); GFR > 60 ML/MIN (>=60 (CALC)); GFR FOR AFR.AMER. > 60 ML/MIN (>=60 (CALC)); MAGNESIUM 1.8 mg/dL (1.6-2.3); POTASSIUM 3.9 mmol/l (3.5-5.1); SODIUM 134 mmol/l (137-146)
[2018-06-12 12:27] LABS: HEMATOCRIT 29.7 % (39.0-50.0); HEMOGLOBIN 9.7 g/dl (14.0-18.0); IMMATURE GRANULOCYTES 7.2 % (0.0-5.0); MEAN CELL VOLUME 85.8 fL CALC (80.0-100.0); MEAN CORPUSCULAR HGB CONC 32.7 g/L CALC (32.0-36.0); PLATELET COUNT 200 thou/uL (130-400); RED BLOOD COUNT 3.46 mill/uL (4.70-6.10)
[2018-06-12 12:30] LABS: MANUAL DIFFERENTIAL YES
[2018-06-12 13:28] LABS: BAND 6 % (0-8); POLYCHROMASIA RARE
[2018-06-12 13:29] LABS: OTHER CELL TYPE 2
--- NOTE | 2018-06-12 14:21 | NUR ---
DR. ANGLIN AT BEDSIDE. IN ROOM. NOTIFIED MD RE: PT PENIS AND TESTICLES SWOLLEN WITH A REDNESS/PURPLE COLOR. NO NEW ORDERS RECEIVED AT THIS TIME.
--- NOTE | 2018-06-12 14:48 | NUR ---
PT IS REFUSING TO GO IN A WHEELCHAIR FOR HIS CTA. PT STATING HE IS WEAK. PT WENT CALLUM VIA STRETCHER.
--- NOTE | 2018-06-12 16:09 | NUR ---
PT CALLED STATED I PEE THE BED. PT STATED I WAS SLEEPING. DOMINIK CARE DONE. LARGE AMOUNT OF URINE IN PAD WITH MODERATE DARK GREEN BM. PT DENIES ANY OTHER NEEDS.
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
--- NOTE | 2018-06-12 22:35 | NUR ---
PATIENT INCONT OF MOD AMT OF YELLOW URINE. PAD WAS CHANGED AND DOMINIK-CARE PROVIDED. MEDICATED FOR SLEEP WITH ATIVAN 0.5MG PO. SAFETY PRECAUTIONS REINFORCED. CALL LIGHT IN REACH. WILL CONT TO MONITOR.
[2018-06-13] VITALS (7 sets, daily range): BP systolic 132–150; BP diastolic 60–76
--- NOTE | 2018-06-13 | NUR ---
PATIENT CALLED AND ASKED WHERE HE WAS-PATIENT WAS REORIENTED AND ASSISTED TO BSC. VS TAKEN AND STILL WITH LOW GRADE TEMP OF 99.1. PATIENT IS VERY WEAK-HAD MODERATE AMT OF BLACK LOOSE STOOL WITH URINE ON BSC. DOMINIK-CARE WAS DONE. ASSISTED BACK TO BED. IVF PATENT AND INFUSING AT 75CC/HR VIA RIGHT WRIST SITE. SAFETY PRECAUTIONS REINFORCED. CALL LIGHT IN REACH. WILL CONT T O MONITOR.
--- NOTE | 2018-06-13 00:01 | NUR ---
PATIENT CALLED AND ASKED WHERE HE WAS-PATIENT WAS REORIENTED AND ASSISTED TO THE BSC. VS TAKEN AND PATIENT STILL WITH LOW GRADE FEVER OF 99.1. PATIENT IS VERY WEAK. PATIENT HAD MODERATE AMT OF DARK GREENISH BLACK LIQUID STOOL. DOMINIK-CARE DONE. ASSISTED BACK TO BED. IVF PATENT AND INFUSING AT 75CC/HR VIA RIGHT WRIST SITE. SAFETY PRECAUTIONS REINFORCED. CALL LIGHT IN REACH. WILL CONT TO MONITOR.
--- NOTE | 2018-06-13 01:55 | NUR ---
PATIENT FOUND SITTING ON THE SIDE OF THE BED-BSC FOUND WITH 200CC OF YELLOW URINE IN IT. PATIENT TELE MONITOR IS OFF. PATIENT REORIENTED AND ASSISTED BACK INTO BED. DOMINIK-CARE WAS DONE. PAD WAS CHANGED. TELE MONITOR REAPPLIED . IVF PATENT AND INFUSING AT 75CC/HR VIA LEFT WRIST SITE. SAFETY PRECAUTIONS REINFORCED. BED ALARM IN PLACE FOR PATIENT SAFETY. CALL LIGHT IN REACH. WILL CONT TO MONITOR.
--- NOTE | 2018-06-13 03:38 | NUR ---
PATIENT APPEARS SLEEPING AT THIS TIME WITH EYES CLOSED. RESP ARE EVEN AND UNLABORED AT THIS TIME. BED ALARM IN PLACE FOR PATIENT SAFETY. IVF PATENT AND INFUSING AT 75CC/HR VIA LEFT WRIST SITE. TELE MONITOR IN PLACE. CALL LIGHT IN REACH. WILL CONT TO MONITOR.
--- NOTE | 2018-06-13 04:00 | NUR ---
BED ALARM IS GOING OFF AND STAFF RESPONDED TPO ROOM TO FIND PATIENT ATTEMPTING TO GET OOB TO THE BSC-INCONT OF URINE ON THE FLOOR AND POSITIONED ON THE BSC. PATIENT VOIDED 100CC OF [id number] DONE WITH SOAP AND WATER. PADS WERE CHANGED. ASSISTED BACK TO THE BED. GOWN CHANGED. TELE MONITOR IN PLACE3. IVF D51/2NS 20 KCL PATENT AND INFUSING VIA LEFT WRIST SITE. SITE REMAINS HEALTHY AT THIS TIME. BED ALARM IN PLACE FOR PATIENT SAFETY. SAFETY PRECAUTIONS REINFORCED. CALL LIGHT IN REACH. WILL CONT TO MONITOR.
[2018-06-13 05:23] LABS: HEMATOCRIT 31.3 % (39.0-50.0); HEMOGLOBIN 10.1 g/dl (14.0-18.0); MEAN CELL VOLUME 85.5 fL CALC (80.0-100.0); MEAN CORPUSCULAR HGB 27.6 pG CALC (26.0-32.0); MEAN CORPUSCULAR HGB CONC 32.3 g/L CALC (32.0-36.0); PLATELET COUNT 232 thou/uL (130-400); RED BLOOD COUNT 3.66 mill/uL (4.70-6.10); RED CELL DISTRI WIDTH 17.2 % (11.5-15.5)
[2018-06-13 05:24] LABS: IMMATURE GRANULOCYTES 6.8 % (0.0-5.0)
--- NOTE | 2018-06-13 05:29 | NUR ---
RECIEVED CALL FROM WILL IN THE LAB WITH CRITICAL LAB-WBC-49.7 THIS MORNING. IMPROVED FROM LAST READING. WILL CONT TO MONITOR.
[2018-06-13 05:43] LABS: MANUAL DIFFERENTIAL YES
[2018-06-13 05:44] LABS: ALBUMIN 2.6 g/dL (3.2-5.0); ANION GAP 11 (6-22 (CALC)); ANISOCYTOSIS FEW; BILIRUBIN, TOTAL 0.7 mg/dL (0.0-1.4); BUN 11 mg/dL (8-23); BUN/CREATININE RATIO 18 (12-20 (CALC)); CARBON DIOXIDE 25 mmol/l (22-30); CHLORIDE 101 mmol/l (95-108); CREATININE 0.6 mg/dL (0.7-1.3); GFR > 60 ML/MIN (>=60 (CALC)); GFR FOR AFR.AMER. > 60 ML/MIN (>=60 (CALC)); MAGNESIUM 1.8 mg/dL (1.6-2.3); MICROCYTOSIS FEW; OVALOCYTES FEW; PLATELET ESTIMATE NORMAL; POTASSIUM 4.4 mmol/l (3.5-5.1); SGOT/AST 17 u/l (19-48); SODIUM 133 mmol/l (137-146); TOTAL PROTEIN 5.4 g/dL (6.3-8.2)
[2018-06-13 05:53] LABS: ALKALINE PHOSPHATASE 128 u/l (38-126)
--- NOTE | 2018-06-13 07:30 | NUR ---
REPORT WAS RECEIVED FROM HI. ASSESSMENT DONE. PT IS A&O X3 AT THIS TIME. MEDICATED PT WITH DILAUDID FOR PAIN IN ABD 06/30 SEE EMAR. RESPS EVEN AND UNLABORED. TELE IN PLACE. JERROD IN ABD IN PLACE [facility]. I.S ENCOURAGE. PT DENIES ANY OTHER NEEDS AT THIS TIME. SAFETY PRECAUTIONS REINFORCED AND CALL LIGHT IN REACH.
--- NOTE | 2018-06-13 09:45 | NUR ---
PT CAME OUT OF THE ROOM STATED IV IS OUT AND BLEEDING. PT STATED HE THOUGHT HE WAS NOT CONNECTED THAT'S WHY HE PULL HIS IV SITE. X2 PERSON ASSISTED PT TO SIT IN RECLINER. IN ROOM. CALL LIGHT IN REACH.
--- NOTE | 2018-06-13 11:02 | NUR ---
PT IS SITTIG IN RECLINER. DR. HERRERA IN ROOM DISCUSS POC WITH PT AND .
--- NOTE | 2018-06-13 12:12 | NUR ---
DR. ANGLIN AT BEDSIDE TO DISCUSS POC WITH PT AND . CALL LIGHT IN REACH.
--- NOTE | 2018-06-13 15:25 | NUR ---
FOUND PATIENT JANIE WALKING TO THE BATHROOM. PT IS CONFUSED. ASSISTED PT TO THE BATHROOM PT VOID YELLOW URINE. GOWN CHANGE. AUTOMATION CONTROLS EXPERT AND I ASSISTED PT TO GO BACK TO BED. PT TRYING TO TAKE HIS GOWN OFF. REORIENT PT. BED ALARM IN PLACE AND CALL LIGHT IN REACH.
--- NOTE | 2018-06-13 16:16 | NUR ---
PT CALLED STATED HE HAS BACK PAIN. MEDICATED PT WITH TYLENOL SEE EMAR. TURN PT TO HIS LEFT SIDE . TOLD PT HE NEEDS TO BE TURNING. IN ROOM. CALL LIGHT IN REACH. BED ALARM IN PLACE FOR SAFETY.
--- NOTE | 2018-06-13 16:23 | NUR ---
1621 PATIENT REFUSED PHYSICAL THERAPY EVALUATION HE IS TOO MUCH BACK PAIN AT THIS TIME. THERAPIST EXPLAINED THAT SOMEONE WOULD TRY AGAIN TOMORROW.
--- NOTE | 2018-06-13 19:46 | NUR ---
PATIENT RESTING IN BED AT THIS TIME WITH HOB SLIGHTLY ELEVATED AND EYES CLOSED. RESP ARE EVEN AND UNLABORED AT THIS TIME. TELE MONITOR IN PLACE AT THIS TIME. SALINE LOCK TO LEFT FOREARM INTACT AND APPEARS HEALTHY AT THIS TIME. BED ALARM IN PLACE FOR PATIENT SAFETY. CALL LIGHT IN REACH. WILL CONT TO MONITOR.
--- NOTE | 2018-06-14 01:59 | NUR ---
PATIENT RESTING IN BED-C/O SEVERE ABD PAIN-8/10 ON PAIN SCAle. MEDICATED WITH DILAUDID 1MG IVP FOR PAIN. PATIENT WITH NO BM'S SO FAR TONIGHT. VOIDING YELLOW URINE ONLY. JERROD INTACT AND WELL APPROXIMATED. NO DRAINAGE NOTED. IV SITE TO LEFT FOREARM SITE INTACT AND REMAINS HEALTHY AT THIS TIME. PATIENT SCROTUM AND PENIS REMAINS PURPLE-FADING SLIGHTLY. SAFETY PRECAUTIONS REINFORCED. BED ALARM IN PLACE. CALL LIGHT IN REACH. WILL CONT TO MONITOR.
--- NOTE | 2018-06-14 04:25 | NUR ---
RESPONDED TO CALL LIGHT AND PATIENT MIN ASSIST TO BSC TO VOID QS YELLOW URINE. NO BM'S THIS SHIFT SO FAR. PATIENT IS PASSISNG SOME FLATUS BUT NO STOOL. PATIENT MIN ASSIST BACK TO BED. SALINE LOCK REMAINS HEALTHY AT LEFT FOREARM SITE. TELE MONITOR IN PPACE. SAFETY PRECAUTIONS REINFORCED.BED ALARM IN PLACE. CALL LIGHT IN REACH. WILL CONT TO MONITOR.
[2018-06-14 05:06] VITALS: BP 122/56
[2018-06-14 05:44] LABS: HEMOGLOBIN 10.2 g/dl (14.0-18.0); IMMATURE GRANULOCYTES 6.4 % (0.0-5.0); MANUAL DIFFERENTIAL YES; MEAN CELL VOLUME 85.8 fL CALC (80.0-100.0); MEAN CORPUSCULAR HGB 27.3 pG CALC (26.0-32.0); MEAN CORPUSCULAR HGB CONC 31.9 g/L CALC (32.0-36.0); PLATELET COUNT 247 thou/uL (130-400); RED BLOOD COUNT 3.73 mill/uL (4.70-6.10); RED CELL DISTRI WIDTH 17.4 % (11.5-15.5)
[2018-06-14 05:47] LABS: ANISOCYTOSIS FEW; HYPOCHROMIA MODERATE; PLATELET ESTIMATE NORMAL; POIKILOCYTOSIS FEW
[2018-06-14 05:55] LABS: ALBUMIN 2.9 g/dL (3.2-5.0); ALKALINE PHOSPHATASE 131 u/l (38-126); ANION GAP 12 (6-22 (CALC)); BILIRUBIN, TOTAL 0.7 mg/dL (0.0-1.4); BUN 11 mg/dL (8-23); BUN/CREATININE RATIO 17 (12-20 (CALC)); CARBON DIOXIDE 26 mmol/l (22-30); CHLORIDE 99 mmol/l (95-108); CREATININE 0.6 mg/dL (0.7-1.3); GFR > 60 ML/MIN (>=60 (CALC)); GFR FOR AFR.AMER. > 60 ML/MIN (>=60 (CALC)); MAGNESIUM 1.9 mg/dL (1.6-2.3); POTASSIUM 4.3 mmol/l (3.5-5.1); SGOT/AST 17 u/l (19-48); SODIUM 133 mmol/l (137-146); TOTAL PROTEIN 5.6 g/dL (6.3-8.2)
--- NOTE | 2018-06-14 05:58 | NUR ---
DR. LOPEZ CALLED WITH CRITICAL LAB [id number]-57.4, HBG-10.2, HCT-32.0 NO NEW ORDERS RECEIVED
--- NOTE | 2018-06-14 07:15 | NUR ---
REPORT RECEIVED FROM HAYDEE DO;PT RESTING IN SUPINE POSITION;INTRODUCED SELF TO PT AND POC DISCUSSED;RESPIRATIONS EVEN AND UNLABORED ON RA;PT DENIES ANY CURRENT PAIN OR NEEDS;TELE MONITORING IN PLACE;PT ENCOURAGED TO CALL FOR ASSISTANCE IF NEEDED;FALL PRECAUTIONS IN PLACE WITH BED IN THE LOWEST POSITION AND BED ALARM ON FOR SAFETY;CALL LIGHT IN REACH;WILL CONTINUE TO MONITOR
[2018-06-14 09:06] VITALS: BP 131/65
--- NOTE | 2018-06-14 09:10 | NUR ---
PT RESTING IN SUPINE POSITION,AGITATED REPORTING "I JUST CAN'T GET COMFORTABLE;PT RE-POSITIONED FOR COMFORT;VS OBTAINED AND ASSESSMENT COMPLETED,A&O X3;PT REPORTS ABDOMINAL PAIN RATING 5/10 ON THE PAIN SCALE AND REQUESTS PAIN MEDICATION, PT MEDICATED WITH PRN DILAUDID 1MG IVP;RESPIRATIONS EVEN AND UNLABORED ON RA,ENCOURAGED USE OF I.S. 10X PER HOUR;ABDOMEN SOFT ON PALPATION AND ACTIVE IN ALL 4 QUADRANTS;MIDLINE INCISIONAL AREA NOTED TO ABDOMEN,JERROD IN PLACE AND SITE WELL APPROX.RN HEMODIALYSIS;DICOLORATION OF SCORTUM NOTED;STRONG PEDAL PULSES;TELE MONITORING IN PLACE;#22G TO LEFT FOREARM FLUSHED AND PATENT,SITE APPEARS HEALTHY;PT NOTED TO BE FORGETFUL AT TIMES,WILL ORIENT ACCORDINGLY;PY DENIES ANY ADDITIONAL NEEDS AND IS ENOCOURAGED TO CALL FOR ASSISTANCE IF NEEDED;FALL PRECAUTIONS IN PLACE WITH BED IN THE LOWEST POSITION AND BED ALARM ON FOR SAFETY;CALL LIGHT IN REACH;WILL CONTINUE TO MONITOR
[2018-06-14 11:05] VITALS: BP 143/67
--- NOTE | 2018-06-14 12:05 | NUR ---
PT RESTING IN BED SPEAKING WITH HIIRON INSTALLER WITH SPOUSE AT BEDSIDE;RESPIRATIONS EVEN AND UNLABORED ON RA;PT DENIES ANY CURRENT NEEDS AT THIS TIME;TELE MONITORING IN PLACE;ASSESSMENT REMAINS UNCHANGED;PT ENCOURAGED TO CALL FOR ASSISTANCE IF NEEDED;BED ALARM ON FOR PT SAFETY;CALL LIGHT IN REACH;WILL CONTINUE TO MONITOR
--- NOTE | 2018-06-14 13:12 | NUR ---
PT RESTING IN BED WITH SPOUSE AT BEDSIDE;PT REPORTS ABDOMINAL PAIN RATING 5/10 ON THE PAIN SCALE,PT MEDICATED WITH PRN PERCOCET 5/325MG PO;WILL CONTINUE TO MONITOR FOR EFFECTIVENESS
--- NOTE | 2018-06-14 17:06 | NUR ---
PT RESTING ON BEDSIDE COMMODE WITH SPOUSE AT BEDSIDE;PT REPORTS ABDOMINAL PAIN RATING 5/10 ON THE PAIN SCALE AND REQUESTS PAIN MEDICATION;PT MEDICATED WITH PRN PERCOCET 5/325MG PO;RESPIRATIONS EVEN AND UNLABORED ON RA;TELE MONITORING IN PLACE;PT DENIES ANY ADDITIONAL NEEDS AND IS ENCOURAGED TO CALL FOR ASSISTANCE IF NEEDED;CALL LIGHT IN REACH;WILL CONTINUE TO MONITOR
[2018-06-14 17:21] VITALS: BP 135/63
--- NOTE | 2018-06-14 19:45 | NUR ---
PATIENT RESTING IN BED AT THIS TIME WITH HOB ELEVATED. PATIENT IS AWAKE ALERT AND ORIENTEDX3. PATIENT STATES THAT HE HAD MINIMAL RELIEF FROM PERCOCET GIVEN EARLIER FOR PAIN. MEDICATED FOR POST-OP ABD PAIN WITH DILAUDID 1MG IVP FOR PAIN VIA LEFT FOREARM IV SITE. SITE IS HEALTHY AT THIS TIME. ABD INCISION IS MOLDING LINE OPERATOR, CLOSED WITH JERROD AND WELL APPROXIMATED. NO DRAINAGE NO S/S OF INFECTION NOTED. ABD IS SOFT-PASSING FLATUS, NO BM TODAY. VOIDING YELLOW URINE. TELE MONITOR IN PLACE. ENCOURAGED USE OF IS Q1H WHILE A/W, NOT WEARING SCD'S AT THIS TIME PER PATIENT. STATES THAT HE MAY BE GOING TO REHAB SOON. SAFETY PRECAUTIONS REINFORCED. CALL LIGHT IN REACH. WILL CONT TO MONITOR.
[2018-06-14 20:32] VITALS: BP 134/61
--- NOTE | 2018-06-14 23:00 | NUR ---
PATIENT WITH NO COMPLAINTS AT THIS TIME-RESTING IN BED. APPEARS SLEEPING WITH EYES CLOSED. RESP ARE EVEN AND UNLABORED. CALL LIGHT IN REACH. WILL CONT TO MONITOR.
[2018-06-15 00:23] VITALS: BP 148/68
--- NOTE | 2018-06-15 00:30 | NUR ---
PATIENT RESTING IN BED-STATES THAT HE HAS ABD PAIN AND THAT HE JUST CAN'T GET COMFORTABLE. PATIENT OFFERED PERCOCET BUT STATES THAT HE TRIED THAT TWICE YESTERDAY AND IT DIDN'T DO ANYTHING. REINFORCED WITH PATIENT THAT HE WON'T BE TAKING IV DILAUDID IN REHAB AND PATIENT STATES THAT HE KNOWS THAT. JUST WANTS TO GET SOME SLEEP. PATIENT THEN MEDICATED WITH DILAUDID 1MG FOR POST-OP PAIN AND WITH ATIVAN 0.5 FOR ANXIETY AND SLEEP. SAFETY PRECAUTIONS REINFORCED. CALL LIGHT IN REAC. WILL CONT TO MONITOR.
[2018-06-15 04:49] VITALS: BP 150/68
--- NOTE | 2018-06-15 06:55 | NUR ---
REPORT RECEIVED FROM HAYDEE DO;PT RESTING IN SUPINE POSITION;INTRODUCED SELF TO PT AND POC DISCUSSED;RESPIRATIONS EVEN AND UNLABORED ON RA;PT DENIES ANY CURRENT NEEDS AT THIS TIME;ENCOURAGED TO CALL FOR ASSISTANCE IF NEEDED;FALL PRECAUTIONS IN PLACE WITH BED ALARM ON FOR SAFETY;CALL LIGHT IN REACH;WILL CONTINUE TO MONITOR
[2018-06-15 09:04] VITALS: BP 149/69
--- NOTE | 2018-06-15 09:05 | NUR ---
PT RESTING IN BED WITH SPOUSE AT BEDSIDE, A&O X3;VS OBTAINED AND ASSESSMENT COMPLETED;PT REPORTS ABDOMINAL PAIN RATING 3/10 ON THE PAIN SCALE AND REQUESTS PAIN MEDICATION, PT MEDICATED WITH PRN DILAUDID 1MG IVP AT THIS TIME;RESPIRATIONS EVEN AND UNLABORED ON RA,CLEAR LUNG SOUNDS;ABDOMEN SOFT ON PALPATION AND ACTIVE IN ALL 4 QUADRANTS;STRONG PEDAL PULSES;#22G TO LEFT FOREARM FLUSHED AND PATENT,SITE APPEARS HEALTHY;PT DENIES ANY ADDITIONAL NEEDS AND IS ENCOURAGED TO CALL FOR ASSISTANCE IF NEEDED;FALL PRECAUTIONS IN PLACE WITH CALL LIGHT IN REACH;WILL CONTINUE TO MONITOR
[2018-06-15 11:45] VITALS: BP 151/66
--- NOTE | 2018-06-15 11:45 | NUR ---
PT RESTING IN BED WITH SPOUSE AT BEDSIDE;RESPIRATIONS EVEN AND UNLABORED ON RA;PT DENIES ANY CURRENT PAIN OR NEEDS;TELE MONITORING IN PLACE;IV SITE TO LEFT FOREARM REMAINS PATENT;ASSESSMENT UNCHANGED AT THIS TIME;FALL PRECAUTIONS IN PLACE WITH BED ALARM ON FOR SAFETY;CALL LIGHT IN REACH;WILL CONTINUE TO MONTIOR
--- NOTE | 2018-06-15 11:58 | NUR ---
AT BEDSIDE DISCUSSING POC.
--- NOTE | 2018-06-15 13:17 | NUR ---
The patient has just gotten back from walking independently in the room with FWW. He is seen for HEP and given written instructions including bridges, APs and bedside standing 6x daily Am Pac score is 16 indicating home with home health for funcitonal deficits
[2018-06-15 14:30] VITALS: BP 143/71
--- NOTE | 2018-06-15 16:17 | NUR ---
PT RESTING IN BED INCONTINENT OF A LARGE AMOUNT OF DARK BROWN/LOOSE STOOL;DOMINIK CARE PROVIDED;RESPIRATIONS EVEN AND UNLABORED ON RA;PT REPORTS ABDOMINAL PAIN RATING 4/10 ON THE PAIN SCALE,PRN ULTRAM 50MG PO PROVIDED AT THIS TIME;PT RE-POSITIONED INTO RECLINER FOR COMFORT;TELE MONITORING IN PLACE;PT DENIES ANY ADDITIONAL NEEDS AND IS ENCOURAGED TO CALL FOR ASSISTANCE IF NEEDED;FALL PRECAUTIONS IN PLACE WITH CALL LIGHT IN REACH;WILL CONTINUE TO MONITOR
--- NOTE | 2018-06-15 18:31 | NUR ---
The patient was seen in the PM to review the exercises mentioned. He was also able to ambulate 40 feet in the room. He is able to stand to sit and sit to supine with min assist of 1 Given his multiple meidical problems, he would do well as the family has expressed trepidation concerning going home. He would do well in a SNF given his mutliple medical problems
[2018-06-15 19:29] VITALS: BP 141/74
--- NOTE | 2018-06-15 21:52 | NUR ---
PT MEDICATED ORDERS PROVIDE AND FOR RESTLESSNESS. PT IS ANSWERING QUESTIONS APPROPRIATELY, BUT APPEARS VERY RESTLESS AND IS ATTEMPTING TO WALK AROUND ROOM/UP AND DOWN. REPORTS THAT HE CANNOT "SETTLE DOWN TO REST." POC AND MEDICATIONS DISCUSSED W/PT AND NEW MEDICATION DISCUSSED AND PT EDUCATED. HE EXPRESSED WANTING TO "TRY IT IF IT WORKS." WILL CONTINUE TO MONITOR PT, BED ALARM IN PLACE AND CALL LIGHT AT BEDSIDE.
--- NOTE | 2018-06-15 23:38 | NUR ---
PT SET BED ALARM OFF, HE APPEARS TO BE CONFUSED, UNAWARE OF CIRCUMSTANCE AND LOCATION. ATTEMPTING TO "GO DO SOME WORK." PT HAS PULLED OFF GOWN AND TRANSPORTATION OFFICER. WE ARE UNABLE TO REORIENT PT TO CIRCUMSTANCE. BED ALARM IS ON AND PT INSTRUCTED TO CALL IF HE NEEDS TO AMBULATE.
[2018-06-16 00:18] VITALS: BP 168/84
--- NOTE | 2018-06-16 01:19 | NUR ---
PT MEDICATED FOR PAIN REPORTED 07/31 BY PT. PT IS AGITATED AND GRUNTING/MOANING WHEN MOVING. WILL CONTINUE TO MONITOR CLOSELY. ISAIAS NICK IS SITTING W/PT ATTEMPTING TO CALM HIM AND HELP REORIENT/PT IS CONFUSED TO WHERE HE IS AND CIRCUMSTANCE.
--- NOTE | 2018-06-16 03:45 | NUR ---
PT AGITATED, PULLING GOWN AND TELEMETRY OFF, SLAPPING AT AIDE. AIDE IS ATTEMPTING TO OBTAIN BP AND PT KEEPS PULLING AT BP CUFF W/AGITATION. ATTEMPTS WERE MADE TO REORIENT PT TO CIRCUMSTANCE, BUT HE IS NOT RESPONDING. PT ASSISTED BACK INTO BED, WILL REASSESS BP WHEN PT BECOMES LESS AGITATED. AIDE IS SITTING IN W/PT AT THIS TIME AND BED ALARM IS ON.
--- NOTE | 2018-06-16 04:40 | NUR ---
PT IS SLEEPING AT THIS TIME. NO S/O DISTRESS OR AGITATION. BED ALARM ON, WILL CONTINUE TO MONITOR FOR PAIN AND AGITATION.
[2018-06-16 05:02] VITALS: BP 155/76
--- NOTE | 2018-06-16 05:27 | NUR ---
HAND SPINNER HEARD A SOUND COME FROM PT'S ROOM, UPON ENTERING ROOM PT WAS FOUND ON THE FLOOR NEXT TO BED. PT HAD URINATED AND APPEARED TO HAVE SLIPPED IN HIS URINE. PT LEGS WERE FOLDED UP UNDER HIM. HAND SPINNER CALLED FOR ASSISTANCE AND ME AND TWO AIDES ASSISTED PT UP ONTO BED WHERE PT WAS CLEANED OF URINE AND ASSESSED FOR INJURY. PHYSICIAN WAS NOTIFIED, ORDERS WERE PLACED AT THIS TIME. AIDE IS IN W/PT AT THIS TIME. AND BED ALARM ON. PT APPEARS TO HAVE A LUMP ON LEFT SIDE OF FOREHEAD NO OTHER S/O INJURY APPARENT AT THIS TIME. WILL CONTINUE ASSESSING NEURO'S AND FOR PAIN. DENIES ANY PAIN AT THIS TIME. PT APPEARS TO BE ABLE TO COMMUNICATE APPROPRIATELY IN ANSWERING OUR QUESTIONS. , PUPILS ARE EQUAL AND RESPONSIVE, NEURO'S APPEAR INTACT AT THIS TIME.
--- NOTE | 2018-06-16 05:50 | NUR ---
PT'S NOTIFIED OF FALL AND PHYSICIANS ORDERS IN RESPONSE.
--- NOTE | 2018-06-16 05:50 | NUR ---
PT DOWN FOR CT SCAN.
[2018-06-16 06:11] LABS: ALBUMIN 3.2 g/dL (3.2-5.0); ALKALINE PHOSPHATASE 125 u/l (38-126); ANION GAP 13 (6-22 (CALC)); BILIRUBIN, TOTAL 1.1 mg/dL (0.0-1.4); BUN 10 mg/dL (8-23); BUN/CREATININE RATIO 22 (12-20 (CALC)); CARBON DIOXIDE 27 mmol/l (22-30); CHLORIDE 96 mmol/l (95-108); CREATININE 0.5 mg/dL (0.7-1.3); GFR > 60 ML/MIN (>=60 (CALC)); GFR FOR AFR.AMER. > 60 ML/MIN (>=60 (CALC)); MAGNESIUM 1.8 mg/dL (1.6-2.3); POTASSIUM 5.1 mmol/l (3.5-5.1); SGOT/AST 29 u/l (19-48); SODIUM 131 mmol/l (137-146); TOTAL PROTEIN 6.2 g/dL (6.3-8.2)
[2018-06-16 06:12] LABS: HEMATOCRIT 34.6 % (39.0-50.0); HEMOGLOBIN 11.1 g/dl (14.0-18.0); IMMATURE GRANULOCYTES 6.4 % (0.0-5.0); MANUAL DIFFERENTIAL YES; MEAN CELL VOLUME 86.1 fL CALC (80.0-100.0); MEAN CORPUSCULAR HGB 27.6 pG CALC (26.0-32.0); MEAN CORPUSCULAR HGB CONC 32.1 g/L CALC (32.0-36.0); PLATELET COUNT 242 thou/uL (130-400); RED BLOOD COUNT 4.02 mill/uL (4.70-6.10); RED CELL DISTRI WIDTH 17.8 % (11.5-15.5)
--- NOTE | 2018-06-16 06:20 | NUR ---
ELECTRICAL ELECTRONICS TECHNICIAN SITTING AT DOOR OF PT ROOM, BED ALARM IS ON. PT APPEARS TO BE RESTING COMFORTABLY AT THIS TIME. NO S/O DISTRESS. NEURO'S APPEAR INTACT. NO S/O AGITATION. PT REMAINS CALM.
--- NOTE | 2018-06-16 06:51 | NUR ---
CUFF MATCHER IS SITTING AT DOORWAY OF PT ROOM, BED ALARM ON. PT IS BECOMING AGITATED AND ATTEMPTING TO GET OUT OF BED, PULL GOWN AND MANAGER LEADERSHIP DEVELOPMENT OFF. KICKING BLANKETS OFF. PT COMMUNICATED THAT HE NEEDS TO USE RESTROOM, PT ASSISTED W/USE OF URINAL/100CC OF CLEAR YELLOW URINE OUTPUT AT THIS TIME. PT REMAINS IN BED, BUT IS AGITATED AND DOES NOT SEEM TO UNDERSTAND THAT HE IS UNSAFE GETTING UP BY HIMSELF AND NEEDS TO REMAIN IN BED W/OUT ASSISTANCE.
--- NOTE | 2018-06-16 07:00 | NUR ---
RECIEVED REPORT AT BEDSIDE . ASSUMED PT CARE. PT ATTEMPTING TO GET OOB, BED ALARM IN PLACE, ARRIVED AT BEDSIDE. PT REORIENTED AT NEEDED AND ASSISTED WITH REPOSITIONING. PT CONTINUES WITH LARGE KNOT WITH BRUISING TO LEFT FOREHEAD. CALL LIGHT IN REACH, WILL MONITOR.
--- NOTE | 2018-06-16 07:30 | NUR ---
ASSESSMENT DONE SEE INTERVENTIONS. REMAINS AT BEDSIDE.
[2018-06-16 08:44] LABS: URINE BILIRUBIN - DIPSTICK NEGATIVE (NEGATIVE); URINE BLOOD DIPSTICK NEGATIVE (NEGATIVE); URINE COLOR YELLOW; URINE GLUCOSE - DIPSTICK NEGATIVE (NEGATIVE); URINE KETONE NEGATIVE (NEGATIVE); URINE LEUK ESTERASE NEGATIVE (Negative); URINE NITRITE - DIPSTICK NEGATIVE (Negative); URINE PH 6.5 (4.5-8.0); URINE PROTEIN - DIPSTICK NEGATIVE (NEG-TRACE); URINE UROBILINOGEN - DIPSTICK 0.2 E.U./dL (0.2)
[2018-06-16 08:47] LABS: URINE CLARITY CLEAR
--- NOTE | 2018-06-16 09:10 | NUR ---
PT MEDICATED FOR PAIN PER REQUEST, ORDERED.
--- NOTE | 2018-06-16 09:45 | NUR ---
AT BEDSIDE FOR ASSESSMENT AND TO DICUSS PLAN OF CARE.
--- NOTE | 2018-06-16 10:00 | NUR ---
KENYATTA ARRIVED AT BEDSIDE.
[2018-06-16 11:35] VITALS: BP 131/57
--- NOTE | 2018-06-16 13:28 | NUR ---
PT SLEPT FROM 0915 UNTIL 1230, WOKE UP, DISORIENTED TO PLACE AND TIME, REORIENTED BUT NEEDS FREQUENT REORIENTETION. ATE MUCH OF HIS MIDDAY MEAL WITH ASSISTANCE AND CUEING. AFTER MEAL HE GOT OOB AND AMBULATED TO END OF HALLWAY AND BACK TO ROOM WITH ASSIST OF 1 STAFF AND ASSISTIVE DEVICE. SITTING UP IN RECLINER AT THIS TIME, SPOUSE IN ROOM.
--- NOTE | 2018-06-16 13:48 | NUR ---
CONFUSED AT THIS TIME, TRYING TO FEED PEACHES TO INCENTIVE SPIROMETER AND HAD TO BE REDIRECTED THEN HE TRIED TO PUT ICECREAM IN THE IS AND AGAIN HAD TO BE REDIRECTED. HE WAS THEN ASSISTED TO BR AND HAD SOME INCONTINENCE OF URINE BEFORE HE REACHED THE TOILET, ASSISTED BACK TO ROOM AND SITTING UP IN RECLINER AT THIS TIME.
--- NOTE | 2018-06-16 14:02 | NUR ---
NURSE IN CHARGE UPDATED ON ALL EVENTS/ACTIVITIES OBSERVED/PERFORMED.
--- NOTE | 2018-06-16 14:24 | NUR ---
ASSISTED BACK TO BED AT THIS TIME HE REQUESTED, ALARM IN ACTIVE MODE, SPOUSE AT BEDSIDE.
[2018-06-16 16:08] VITALS: BP 141/69
--- NOTE | 2018-06-16 18:12 | NUR ---
WOKE UP FROM SLEEP, STILL DISORIENTED, ASSISTED TO BSC THEN BACK TO BED, REFUSED MEAL, TOOK SIPS OF ENSURE ONLY STATING HE CANT HAVE ANYTHING ELSE. LYING IN SUPINE POSITION, BED ALARM ON, CALL MOORE IN REACH.
[2018-06-16 18:50] VITALS: BP 150/64
--- NOTE | 2018-06-16 20:00 | NUR ---
UP TO BSC TO VOID 150 ML OF CLEAR YELLOW URINE. ASSISTED BACK INTO BED NOW RESTING SEMI FOWLERS AND TALKING TO FAMILY MEMBER ON THE PHONE. ALERT WITH CONFUSION.
--- NOTE | 2018-06-16 20:20 | NUR ---
PT IS IN BED IN LOW FOWLERS POSITION WATCHING TV W/SITTER AT BEDSIDE AND BED ALARM ON. PT ASSESSED TO HAVE MILD CONFUSION, BUT LOC TO SELF. NO S/O AGITATION AT THIS TIME. LEFT SIDE OF FACE AND FORHEAD HAVE BRUISING AROUND EYE AREA.
--- NOTE | 2018-06-16 20:50 | NUR ---
PT MEDICATED FOR PAIN AT REPORTED IN ABD AREA AND HEAD/FACE. NO OTHER S/O DISTRESS NOTED AT THIS TIME. SITTER AT BEDSIDE.
--- NOTE | 2018-06-16 23:27 | NUR ---
PT FREQUENTLY STATING THAT HE WANTS TO GO HOME. ALSO MAKING COMMENTS THAT THERE ARE 8-10 PEOPLE IN HIS ROOM AND AKING THEM TO LEAVE. AT TIMES HE BELIEVES THAT HE IS IN A BOAT AND STATES, "AREN'T YOU GOING TO HELP ME?" REPOSITIONED UP INTO BEDSIDE CHAIR AT THIS TIME.
[2018-06-17 00:02] VITALS: BP 127/70
--- NOTE | 2018-06-17 02:32 | NUR ---
PT AMBULATED TO BATHROOM WITH WALKER AND STAND BY ASSIST; GAIT UNSTEADY. ATTEMPTED TO HAVE BOWEL MOVEMENT WITHOUT SUCCESS. DRESSING TO UPPER MID BACK CDI.
--- NOTE | 2018-06-17 03:54 | NUR ---
PT MEDICATED FOR PAIN 8/10 IN RIGHT HIP. SITTER AT BEDSIDE. PT APPEARS TO BE MORE LOC TO CIRCUMSTANCE AT THIS TIME.
[2018-06-17 04:00] VITALS: BP 136/73
--- NOTE | 2018-06-17 07:00 | NUR ---
PT LAYING IN BED AWAKE, NO CONFUSION NOTED; ASSIT TO SITTING POSITION ON EDGE OF BED, ASSIST WITH BATH, PT DID ORAL CARE; STATES "WILL SIT UP IN CHAIR LATER" VOICE NO CONCERNS; CALL MOORE IN REACH.
[2018-06-17 07:16] VITALS: BP 140/71
--- NOTE | 2018-06-17 07:35 | NUR ---
PT ALERT WITH CONFUSION; GOT MONTH AND DATE WRONG; PUSH CALL MOORE, WHEN ASKED IF HE NEEDS ANYTHING, STATES "NO, I DON'T KNOW WHY I DID THAT" IN AND OUT OF SLEEP.
--- NOTE | 2018-06-17 07:51 | NUR ---
PT'S TUGGING ON HEART MONITOR, REORIENT OF WHERE HE IS AND USE OF HM; SAYS "OK"
--- NOTE | 2018-06-17 08:02 | NUR ---
AM MEDS ADMINISTERED; IV SITE PATENT; ASSIST PT TO SIT ON EDGE OF BED FOR BREAKFAST;
--- NOTE | 2018-06-17 08:25 | NUR ---
PT TALKING ON THE PHONE SAYING "I FELL, I'M IN PAIN, AND NOTHING THEY GAVE ME HERE SEEMS TO TOUCH IT" C/O OF HOSP FOOD. 08:29 PT OFF PHONE, NATURAL GAS TECHNICIAN ASKED PT IF HE'S HURTING, PT STATES " NOT REALLY, NOTHING WORKS, IF I NEED SOMETHING I WILL LET YOU KNOW"
--- NOTE | 2018-06-17 09:31 | NUR ---
ASSESSMENT DONE. TELE IN PLACE. PT IS A&O X2 AT THIS TIME. MEDICATED PT WITH ULTRAM FOR PAIN IN ABD 09/30 SEE EMAR. ABD INCISION AND JERROD CDI. PT DENIES ANY OTHER NEEDS AT THIS TIME. SITTER IN ROOM. IN ROOM. CALL LIGHT IN REACH.
--- NOTE | 2018-06-17 09:45 | NUR ---
PT AMBULATED TO REST ROOM, THEN BACK TO BED WITH A WALKER, SLOW STEADY GAIT; VOIDED LG AMT OF CLEAR, YELLOW URINE; NOW SITTING UP IN BED WITH HOB ELEVATED; WATCHING TV; CALL MOORE REACH; AT BEDSIDE.
--- NOTE | 2018-06-17 10:09 | NUR ---
LAB AT BEDSIDE
[2018-06-17 10:45] VITALS: BP 125/61
--- NOTE | 2018-06-17 10:47 | NUR ---
PT SITTING UP IN BED WATCHING TV; AT BEDSIDE; NURSE INFORM OF PT'S TEMP 99.2
[2018-06-17 11:01] LABS: ANION GAP 12 (6-22 (CALC)); BUN 14 mg/dL (8-23); BUN/CREATININE RATIO 25 (12-20 (CALC)); CARBON DIOXIDE 28 mmol/l (22-30); CHLORIDE 96 mmol/l (95-108); CREATININE 0.5 mg/dL (0.7-1.3); GFR > 60 ML/MIN (>=60 (CALC)); GFR FOR AFR.AMER. > 60 ML/MIN (>=60 (CALC)); MAGNESIUM 1.8 mg/dL (1.6-2.3); SODIUM 132 mmol/l (137-146)
[2018-06-17 11:20] LABS: HEMATOCRIT 30.3 % (39.0-50.0); HEMOGLOBIN 9.6 g/dl (14.0-18.0); MEAN CELL VOLUME 85.4 fL CALC (80.0-100.0); MEAN CORPUSCULAR HGB CONC 31.7 g/L CALC (32.0-36.0); PLATELET COUNT 259 thou/uL (130-400); RED BLOOD COUNT 3.55 mill/uL (4.70-6.10); RED CELL DISTRI WIDTH 18.1 % (11.5-15.5)
[2018-06-17 11:30] LABS: IMMATURE GRANULOCYTES 6.4 % (0.0-5.0); MANUAL DIFFERENTIAL YES
--- NOTE | 2018-06-17 11:37 | NUR ---
PT AMBULATE TO RESTROOM WITH WALKER, NOW SITTING UP IN RECLINER; IS ENCOURAGE, DEMONSTRATE PROPER USE; CALL MOORE IN REACH; AT BEDSIDE; LINEN CHANGE DONE;
[2018-06-17 11:39] LABS: BAND 7 % (0-8)
[2018-06-17 11:41] LABS: ANISOCYTOSIS FEW; HYPOCHROMIA FEW; IMMATURE CELLS 4 %
--- NOTE | 2018-06-17 11:48 | NUR ---
PT IS SITTING IN RECLINER. EATING HIS LUNCH THAT BROUGHT TO HIM. NO S/S OF DISTRESS NOTED. IN ROOM. CALL LIGHT IN REACH.
--- NOTE | 2018-06-17 12:30 | NUR ---
PT ASSISTED BACK TO BED; ATE MINIMAL AMT OF LUNCH; VOICE NO CONCERNS; CALL MOORE IN REACH; AT BEDSIDE.
--- NOTE | 2018-06-17 15:00 | NUR ---
PT AMBULATE TO RESTROOM, VOIDED MOD AMT OF URINE, NO BM; THEN AMBULATE THE BECKMAN AND BACK TO HIS ROOM; NOW SITTING UP IN RECLINER VISITING WITH HIS DAUGHTER AND ; CALL TERESA IN REACH.
--- NOTE | 2018-06-17 15:22 | NUR ---
PT IS SITTING IN RECLINER VISITING WITH FAMILY IN ROOM. NO S/S OF DISTRESS NOTED.
--- NOTE | 2018-06-17 15:29 | NUR ---
ASSISTED PT BACK TO BED; FAMILY AT BEDSIDE; CALL MOORE IN REACH.
[2018-06-17 15:30] VITALS: BP 147/66
--- NOTE | 2018-06-17 16:56 | NUR ---
pt sitting up in bed, dosing off and on; facial cheeks appears flushed, temp taken 99.1, nurse informed; medicated per emar; tolerated well; voice no concerns;
--- NOTE | 2018-06-17 17:10 | NUR ---
pt ambulated to restroom and back into bed, refusing to sit up in chair, stated he's very tired; now back to bed; voided, no bm;
--- NOTE | 2018-06-17 18:10 | NUR ---
assisted pt to recliner for supper, families at bedside; instruct family to plz inform someone at the desk upon their departure; advise pt & families that bed alarms will be active on pt if therr's no sitter.
[2018-06-17 19:10] VITALS: BP 140/65
--- NOTE | 2018-06-17 19:26 | NUR ---
PT IS IN BED AWAKE, WATCHING TV. SITTER IS AT BEDSIDE. DENIES ANY NEEDS AT THIS TIME. BEDSIDE REPORT RECEIVED FROM DAY NURSE.
--- NOTE | 2018-06-17 19:58 | NUR ---
PT ASSESSED, LUNG SOUNDS ARE CLEAR, ABD ACTIVE TENDER W/MIDLINE INCISION NAHUM, NO S/O INVFECTION, JERROD INTACT. PT REPORTS 3 SOFT STOOL THIS DAY. NO EDEMA NOTED, NEURO'S INTACT. PT ASWERS QUESTIONS APPROPRIATELY AND APPEARS ORIENTED TO SELF AND CIRCUMSTANCE AT THIS TIME. SITTER AT BEDSIDE. PT DENIES ANY NEEDS AT THIS TIME, DENIES PAIN. CALL LIGHT AT SIDE.
--- NOTE | 2018-06-17 22:10 | NUR ---
SITTER NO LONGER AT BEDSIDE PER DRY SAND MOLDER, PT SLEEPING. WILL CONTINUE TO MONITOR CLOSELY. NO S/O CONFUSION OR AGITATION THIS EVENING.
--- NOTE | 2018-06-17 23:23 | NUR ---
BED ALARM SOUNDING, UPON ENTERING ROOM PT WAS IN THE BED LEGS IN BED, HE STATED "I CAN'T EVEN TURN OVER." PT ASSISTED REPOSITIONING AND BED ALARM PLACED BACK ON. PT COMMUNICATED APPROPRIATELY AND DOES NOT APPEAR TO BE CONFUSED, REMINDED PT OF LOCATION OF CALL LIGHT AND TO PLEASE CALL PRIOR TO TRYING TO GET UP FOR SAFETY REASONS. PT REMINDED OF PREVIOUS FALL AND SAFETY CONCERNS. PT STATED, "OK."
[2018-06-18] VITALS (7 sets, daily range): BP systolic 146–164; BP diastolic 65–75
--- NOTE | 2018-06-18 00:05 | NUR ---
PT CALLED FOR ASSISTANCE USING RESTROOM, AIDE ASSISTED PT TO RESTROOM AND INSTRUCTED PT TO CALL WHEN HE WAS FINISHED. PT CALLED FOR ASSISTANCE BACK TO BED. PT ASKED FOR HEAD SIDE RAIL TO BE LEFT DOWN, BUT WE EXPLAINED TO HIM THAT THOSE NEEDED TO STAY UP FOR SAFETY PRECAUTIONS. WE ASSISTED PT POSITIONING IN BED AND SET BED ALARM. PT REMINDED OF CALL LIGHT NEXT TO HIM ON BST. HE VOICED UNDERSTANDING. PT ALSO INFORMED EXHIBITOR SALES THAT HE HAD 3 BM'S YESTERDAY AND SHOULD NOT NEED TO HAVE ONE TONIGHT. APPEARS TO BE LOC TO CIRCUMSTANCES. NO S/O CONFUSION AT THIS TIME.
--- NOTE | 2018-06-18 01:33 | NUR ---
PT CALLED FOR ASSISTANCE TO RESTROOM. ASSISTED PT TO RESTROOM AND INSTRUCTED PT TO PULL RED CORD FOR ASSISTANCE WHEN HE IS FINISHED. CORN HUSKER STAYED JUST OUTSIDE RESTROOM DOOR/NEATENING ROOM WAITING FOR PT. PT PULLED RED CALL CORD FOR ASSISTANCE. PT AMBULATED BACK TO THE BED W/OUT DIFFICULTY USING WALKER. PT APPEARS TO BE AWARE OF CIRCUMSTANCES, VOICES FRUSTRATION OF HAVING TO USE RESTROOM SOFT OFTEN WHEN HE IS TRYING TO SLEEP. PT LEFT IN BED W/BED ALARM ON, CALL LIGHT AND URINAL AT BEDSIDE. PT INSRUCTED TO CALL FOR ASSISTANCE IF HE NEEDS TO USE THE URINAL OR GET OUT OF BED, PT VOICED UNDERSTANDING.
--- NOTE | 2018-06-18 02:44 | NUR ---
BED ALARM SOUNDED, PT WAS ATTEMPTING TO GET UP, LEGS WERE OFF THE SIDE OF THE BED. WHEN ASKED WHY HE DIDN'T CALL, PT REPLIED THAT HE THOUGHT HE WAS AT HOME AT FIRST. PT EASILY REORIENTED TO LOCATION AND CIRCUMSTANCE. PT ATTEMPTED USING URINAL W/MY ASSISTANCE, BUT STATED HE CANNOT USE IT/REFUSED AND INSISTED ON WALKING TO RESTROOM. PT VERY WEAK, BUT STEADY W/ONE ASSIST AND WALKER.
--- NOTE | 2018-06-18 04:00 | NUR ---
PT CALLED FOR ASSISTANCE/ASSISTED TO BSC AND BACK TO BED. PT LOC X3
[2018-06-18 05:05] LABS: HEMATOCRIT 33.1 % (39.0-50.0); HEMOGLOBIN 10.3 g/dl (14.0-18.0); IMMATURE GRANULOCYTES 5.6 % (0.0-5.0); MEAN CELL VOLUME 84.9 fL CALC (80.0-100.0); MEAN CORPUSCULAR HGB 26.4 pG CALC (26.0-32.0); MEAN CORPUSCULAR HGB CONC 31.1 g/L CALC (32.0-36.0); PLATELET COUNT 264 thou/uL (130-400); RED CELL DISTRI WIDTH 18.4 % (11.5-15.5)
[2018-06-18 05:18] LABS: ANION GAP 12 (6-22 (CALC)); BUN 13 mg/dL (8-23); BUN/CREATININE RATIO 23 (12-20 (CALC)); CARBON DIOXIDE 28 mmol/l (22-30); CHLORIDE 96 mmol/l (95-108); CREATININE 0.5 mg/dL (0.7-1.3); GFR > 60 ML/MIN (>=60 (CALC)); GFR FOR AFR.AMER. > 60 ML/MIN (>=60 (CALC)); MAGNESIUM 1.9 mg/dL (1.6-2.3); POTASSIUM 4.2 mmol/l (3.5-5.1); SODIUM 131 mmol/l (137-146)
[2018-06-18 05:31] LABS: BAND 2 % (0-8); MANUAL DIFFERENTIAL YES
--- NOTE | 2018-06-18 06:35 | NUR ---
PT IN SUPINE POSITION WITH HOP ELEVATED, APPEARS TO BE SLEEPING; RESP EVEN AND UNLABORED; BED ALARM ACTIVE; CALL MOORE IN REACH;
--- NOTE | 2018-06-18 06:56 | NUR ---
JAVA GRAILS DEVELOPER AT BED SIDE ASSISTING PT TO THE BSC;
--- NOTE | 2018-06-18 08:00 | NUR ---
ASSITED PT TO RECLINER FOR BREAKFAST; ALARM ACTIVE; PT REMINDED TO PUSH RED BUTTON FOR HELP, VERBALIZE UNDERSTANDING; CALL MOORE IN REACH; LINEN CHANGE DONE;
--- NOTE | 2018-06-18 08:05 | NUR ---
ASSESSMENT DONE. PT IS ABLE TO TELL ME HIS NAME , DATE OF , AND THAT HE IS IN THE HOSPITAL. PT DENIES PAIN AT THIS TIME. ABD INCISION AND JERROD ARE CDI. TELE IN PLACE. PT DENIES NEEDS AT THIS TIME. SAFETY PRECAUTIONS REINFORCED AND CALL LIGHT IN REACH. BED ALARM IN PLACE FOR SAFETY.
--- NOTE | 2018-06-18 08:20 | NUR ---
ASSISTED PT TO A SPONGE BATH, PT DID ORAL CARE; ENCOURAGE PT TO AMBULATE THE BECKMAN WITH ME, BUT HE REFUSED SAYING "I WANT TO LAY DOWN" IS ENCOURAGE, PT NODS HIS HEAD; BED ALARM ACTIVE; CALL MOORE IN REACH;.
--- NOTE | 2018-06-18 09:05 | NUR ---
BED ALARM GOING OFF, UPON ENTERING ROOM PT WAS FOUND SITTING UP RIGHT ON EDGE OF BED WITH BOTH LEGS ON THE FLOOR; STATES HE HAS TO USE THE BATHROOM; PROCESS DEVELOPMENT MANAGER CLEANING ROOM AT THE TIME, FLOOR'S WET; ASSIT PT TO BSC; VOIDED, AND HAD MOD LOOSE BM; PT APPEARS A BIT CONFUSED, WHEN ASKED WHAT MONTH IT IS HE STATES "JANUARY, NO NOVEMBER, IT'S NOT FAIR TO ASK ME THOSE QUESTIONS WHEN I JUST GOT UP" REORIENT PT THAT HE WAS UP EARLIER INTO THE CHAIR FOR BREAKAST. PT NOD HIS HEAD; NOW BACK INTO BED; CALL MOORE IN REACH; ALARM ACTIVE;
--- NOTE | 2018-06-18 10:35 | NUR ---
PT SITTING UP IN BED, FAMILIES AT BEDSIDE; BED ALARM ACTIVE.
--- NOTE | 2018-06-18 11:10 | NUR ---
PT APPEARS TO BE SLEEPING, RESP EVEN AND UNLABORED; BED ALARM ACTIVE; NO SITTER REQUIRED; CALL MOORE IN REACH.
--- NOTE | 2018-06-18 11:20 | NUR ---
PT SET OFF THE BED ALARM. PT TRYING TO GET OUT OF BED . PT STATED HE NEEDS TO GO TO THE BATHROOM. ASSISTED PT TO THE BSC. PT VOID. ASSISTED PT TO BACK TO BED. BED ALARM IN PLACE AND CALL LIGHT IN REACH.
--- NOTE | 2018-06-18 12:45 | NUR ---
PT AGREED TO AMBULATE THE HALLS, HE STARTED WALKING FROM HIS BED THEN HAVING A LOOSE BM, SAT PT DOWN ON COMMODE; LG LOOSE BM; DID PARTIAL BATH, LINEN CHANGE; PT NOW BACK INTO BED, DOES NOT WANT TO WALK; BED ALARM ACTIVE; CALL MOORE IN REACH.
--- NOTE | 2018-06-18 13:30 | NUR ---
PT HAD MOD LOOSE INCONTINENT BM, PT STATED HE DID NOT KNOW HE HAD A BM. PT WAS CLEANED UP AND NEW LINENS PROVIDED. BED ALARM ACTIVE.
--- NOTE | 2018-06-18 14:10 | NUR ---
ASSISTED PT TO BSC, VOIDED, NO BM. PT BACK INTO BED; BED ALARM ACTIVE; CALL MOORE IN REACH.
--- NOTE | 2018-06-18 16:05 | NUR ---
PT IS RESTING IN BED WITH NO S/S OF DISTRESS NOTED. PT DENIES PAIN AT THIS TIME. CALL LIGHT IN REACH. BED ALARM IN PLACE.
--- NOTE | 2018-06-18 16:28 | NUR ---
ASSISTED PT TO BSC, VOIDED 200CC CLEAR, BO URINE; REFUSING TO SIT UP IN RECLINER AND REFUSING TO WALK, SAYS "I WANT TO GO BACK TO BED" BED ALARM ACTIVE; CALL MOORE IN REACH.
--- NOTE | 2018-06-18 16:59 | NUR ---
PT SITTING UP IN BED, FAMILIES AT BED SIDE; BED ALARM ACTIVE;
--- NOTE | 2018-06-18 19:27 | NUR ---
PT SET BED ALARM OFF, PT ASSISTED UP TO BEDSIDE COMMODE. PT APPEARS LOC, BUT STATED HE FORGOT TO CALL.
--- NOTE | 2018-06-18 20:19 | NUR ---
PT ASSISTED TO BSC AND BACK TO BED BY AIDE. PT CALLED FOR ASSISTANCE.
--- NOTE | 2018-06-18 20:27 | NUR ---
PT MEDICATED ORDERS PROVIDE AND FOR PAIN REPORTED 5/10. PT ASSISTED IN REPOSITIONING. CALL LIGHT IN HAND, LIGHTS LOW AND TV ON. BED ALARM ON.
[2018-06-19] VITALS (7 sets, daily range): BP systolic 132–164; BP diastolic 69–87
--- NOTE | 2018-06-19 01:00 | NUR ---
PT CALLED FOR ASSISTANCE USING BSC. PT ASSISTED AND BACK TO BED.
--- NOTE | 2018-06-19 03:15 | NUR ---
PT ASSISTED TO BSC AND BACK TO BED. PT LOC, USED CALL LIGHT TO ASK FOR ASSISTANCE. PT VERY WEAK AMBULATING, BUT APPEARS LOC TO CIRCUMSTANCE.
--- NOTE | 2018-06-19 03:45 | NUR ---
PT CALLED FOR ASSISTANCE USING BSC. PT ASSISTED AND BACK TO BED. REPOSITIONED AND BED ALARM SET. CALL LIGHT ON BST AND PT REMINDED OF ITS LOCATION.
[2018-06-19 05:21] LABS: ANION GAP 13 (6-22 (CALC)); BUN 15 mg/dL (8-23); BUN/CREATININE RATIO 27 (12-20 (CALC)); CARBON DIOXIDE 26 mmol/l (22-30); CHLORIDE 96 mmol/l (95-108); CREATININE 0.6 mg/dL (0.7-1.3); GFR > 60 ML/MIN (>=60 (CALC)); GFR FOR AFR.AMER. > 60 ML/MIN (>=60 (CALC)); MAGNESIUM 1.9 mg/dL (1.6-2.3); POTASSIUM 4.2 mmol/l (3.5-5.1); SODIUM 131 mmol/l (137-146)
[2018-06-19 05:44] LABS: HEMATOCRIT 32.9 % (39.0-50.0); HEMOGLOBIN 10.4 g/dl (14.0-18.0); IMMATURE GRANULOCYTES 5.5 % (0.0-5.0); MANUAL DIFFERENTIAL YES; MEAN CELL VOLUME 84.1 fL CALC (80.0-100.0); MEAN CORPUSCULAR HGB 26.6 pG CALC (26.0-32.0); MEAN CORPUSCULAR HGB CONC 31.6 g/L CALC (32.0-36.0); PLATELET COUNT 266 thou/uL (130-400); RED BLOOD COUNT 3.91 mill/uL (4.70-6.10); RED CELL DISTRI WIDTH 18.5 % (11.5-15.5)
--- NOTE | 2018-06-19 07:05 | NUR ---
REPORT RECEIVED FROM HAYDEE MARY;PT RESING AT BEDSIDE EATING BREAKFAST;INTRODUCED SELF TO PT AND POC DISCUSSED;RESPIRATIONS EVEN AND UNLABORED ON RA;PT DENIES ANY CURRENT PAIN OR NEEDS;ENCOURAGED TO CALL FOR ASSISTANCE IF NEEDED;FALL PRECAUTIONS IN PLACE WITH BED IN THE LOWEST POSITION AND BED ALARM ON FOR SAFETY;CALL LIGHT IN REACH;WILL CONTINUE TO MONITOR
--- NOTE | 2018-06-19 08:40 | NUR ---
PT RESTING IN SUPINE POSITION,A&O X3 AT THIS TIME;VS OBTAINED AND ASSESSMENT COMPLETED;PT DENIES ANY CURRENT PAIN,PAIN SCALE AND REPORTING EDUCATED;RESPIRATIONS EVEN AND UNLABORED,SHALLOW ON RA;ADBDOMEN SOFT ON PALPATION AND ACTIVE IN ALL 4 QUADRANTS;MIDLINE INCISION CDI WITH JERROD IN PLACE,DYNAMICS AX CONSULTANT;DISCOLORATION NOTED TO SCROTUM AND BRUISING/HEMATOMA NOTED TO LEFT FRONTAL SCALP;STRONG PEDAL PULSES;#22G TO LEFT FOREARM FLUSHED AND PATENT,SITE APPEARS HEALTHY;TELE MONITORING IN PLACE;PO FLUIDS ENCOURAGED;PT DENIES ANY ADDITIONAL NEEDS AND IS ENCOURAGED TO CALL FOR ASSISTANCE IF NEEDED;FALL PRECAUTIONS IN PLACE WITH BED ALARM ON FOR SAFETY;CALL LIGHT IN REACH;WILL CONTINUE TO MONITOR
--- NOTE | 2018-06-19 09:44 | NUR ---
AT BEDSIDE DISCUSSING POC.
--- NOTE | 2018-06-19 11:24 | NUR ---
PHYSICAL THERAPY WORKING WITH PT.
--- NOTE | 2018-06-19 11:35 | NUR ---
PT RESTING IN SUPINE POSITION REFUSING PHYSICAL THERAPY;JOSÉITTER ENCOURAGED PT TO AMBULATE AND EXPLAINED THE RISKS OF PRESSURE ULCERS THAT COME WITH BEDREST;PT VERBALIZES UNDERSTANDING AND AMBULATES HALLWAY WITH A WEAK GAIT AND WALKER ASSISTED BY [employer] [facility];TELE MONITORING IN PLACE;PT DENIES ANY ADDITIONAL NEEDS AND IS ENCOURAGED TO CALL FOR ASSISTANCE IF NEEDED;BED ALARM TO BE PLACED BACK ON PATIENT AFTER AMBULATION FOR SAFETY;WILL CONTINUE TO MONITOR
--- NOTE | 2018-06-19 11:43 | NUR ---
Mr. Marquez was supine in bed upon entering room. gait training was focus of therapy and pt. agreed to participate. Pt. supine to sit (SBA), sit to stand (CGA) VC for correct hand placement when ascending to standing position. Gait trained 50 ft. x 2, unsteady on feet as initiated gait (CGA), as pt. ambulated down hallway VC for correct placement of walker to not lean , bring walker closer to body. Pt. amulated to bathroom stand to sit (CGA), hand placement VC, sit to stad (CGA) VC for correct hand placement when pushing off. Stand to sit (CGA) sit to stand (SBA). Tray table and call light by patient side, pt. supine in bed, fall prevention aslm was placed back on,
--- NOTE | 2018-06-19 15:25 | NUR ---
PT RESTING IN SUPINE POSITION APPEARS TO BE SLEEPING;RESPIRATIONS EVEN AND UNLABORED ON RA;NO S/S OF DISTRESS NOTED;TELE MONITORING IN PLACE;ASSESSMENT REMAINS UNCHANGED AT THIS TIME;FALL PRECAUTIONS IN PLACE WITH BED ALARM ON FOR SAFETY;CALL LIGHT IN REACH;WILL CONTINUE TO MONTIOR
--- NOTE | 2018-06-19 19:00 | NUR ---
RECEIVED REPORT FROM NURSE GARZA PATIENT RESTING IN BED, DENIES PAIN OR DISCOMFORTS AT THIS TIME, WITH EVEN UNLABORED BREATHING CALL LIGHT AT REACH.
--- NOTE | 2018-06-19 20:00 | NUR ---
PATIENT ALERT AND ORIENTED ABLE TO MAKE NEEDS KNOWN, WITH SALINE LOCK ON LFA G22 PATENT AND FLUSHES WEEL, REMAINS ON TELE SR WITH IVCD 85, LAST BM 06/18, DENIES PAIN OR DISCOMFORTS AT THIS TIME. BED ALARM IN PLACE CALL LIGHT AT REACH.
--- NOTE | 2018-06-19 22:00 | NUR ---
PATIENT WAS AGITATED AND COMPLAINING THAT HE CANT SLEEP AND ANNOYED WITH ALL THE RINGING AND BUZZING, WILL MEDICATE.
--- NOTE | 2018-06-19 22:30 | NUR ---
PATIENT ALERT AND ORIENTED, ABLE TO MAKE NEEDS KNOWN, WITH SALINE LOCK G22 ON LFA PATENT FLUSHES WELL, REMAINS ON TELE SR WITH IVCD 85, DENIES PAIN OR DISCOMFORTS, PATIENT NOTED TO HAVE BRUISING ON LEFT FOREHEAD FROM PREVIOUS FALL. INSTRUCTED TO ASK FOR ASSISTANCE DURING TRANSFER, BED ALARM IN PLACE.
--- NOTE | 2018-06-20 01:50 | NUR ---
PATIENT REMAINS ON BED ALARM, SET OFF BED ALARM WANTED TO PEE. CONFUSED AFTER PRN ATIVAN, WILL CONTINUE TO MONITOR.
--- NOTE | 2018-06-20 03:44 | NUR ---
PATIENT APPEARS TO BE SLEEPING WITH EYES CLOSED, OCCASIONALLY TRYING TO GRAB SOMETHING IN THE AIR, EVEN UNLABORED BREATHING CALL LIGHT AT REACH.
[2018-06-20 05:02] VITALS: BP 160/76
[2018-06-20 05:43] VITALS: BP 142/70
--- NOTE | 2018-06-20 07:05 | NUR ---
REPORT RECEIVED FROM HAYDEE ZEPEDA;PT APPEARS TO BE SLEEPING IN SUPINE POSITION;NO S/S OF DISTRESS NOTED;RESPIRATIONS EVEN AND UNLABORED ON RA;TELE MONITORING IN PLACE;BED IN THE LOWEST POSITION WITH BED ALARM ON FOR PT SAFETY;CALL LIGHT IN REACH;WILL CONTINUE TO MONITOR
--- NOTE | 2018-06-20 08:24 | NUR ---
PHYSICAL THERAPY WORKING WITH PATIENT.
[2018-06-20 08:37] VITALS: BP 123/72
--- NOTE | 2018-06-20 08:40 | NUR ---
PT OOB RESTING IN RECLINER, CONFUSED TO TIME AND PLACE;RE-ORIENTED PT ACCORDINGLY;VS OBTAINED AND ASSESSMENT COMPLETED;PT DENIES ANY CURRENT PAIN OR DISCOMFORTS,PAIN SCALE AND REPORTING EDUCATED;RESPIRATIONS EVEN AND UNLABORED,SHALLOW ON RA;ABDOMEN SOFT ON PALPATION AND ACTIVE IN ALL 4 QUADRANTS;DRESSING TO MIDLINE INCISION CDI;STRONG PEDAL PULSES;BRUISING AND HEMATOMA NOTED TO LEFT FRONTAL HEAD;#20G TO LEFT FOREARM FLUSHED AND PATENT,SITE APPEARS HEALTHY;TELE MONITORING IN PLACE;PT DENIES ANY ADDITIONAL NEEDS AND IS ENCOURAGED TO CALL FOR ASSISTANCE IF NEEDED;FALL PRECAUTIONS IN PLACE WITH BED ALARM ON FOR SAFETY;CALL LIGHT IN REACH;WILL CONTINUE TO MONITOR
[2018-06-20 10:52] VITALS: BP 136/69
--- NOTE | 2018-06-20 11:18 | NUR ---
PT APPEARS TO BE SLEEPING IN SEMI FOWLERS POSITION;RESPIRATIONS APPEAR SHALLOW ON RA;NO S/S OF DISTRESS NOTED;IV SITE TO LEFT FOREARM PATENT;TELE MONITORING IN PLACE; AT BEDSIDE;FALL PRECAUTIONS REMAIN IN PLACE WITH BED ALARM ON FOR SAFETY;CALL LIGHT IN REACH;WILL CONTINUE TO MONITOR
--- NOTE | 2018-06-20 12:35 | NUR ---
PT WAS SEEN FOR FUNCTIONAL ACTIVITY. HE AMBULATED BEDSIDE WITH RW AND MOD A OF 1. CONSTANT VERBAL CUEING ON PROPER POSTURE AND GAIT PATTERN WAS PROVIDED PT WAS SHOWING STOOPED/FLEXED POSTURE WITH ROLLING WALKER AHEAD OF HIM. SAFETY PRECAUTIONS WAS REMINDED AND REINFORCED. PT REPORTS THAT HE FELT LIKE HE WAS FALLING BACKWARDS AND WAS FEELING WEAK. ASSISTED PT BACK TO RECLINER WITH CALL MOORE ON THE SIDE OF THE CHAIR. HE THEN PERFORMED THEREX ON B UE AND LE IN SITTING DISCUSSED LAST WEEK X 10 REPS X 2 SETS. NO ADVERSE RXNS NOTED OR REPORTED AT THE END OF TX. AMPAC SCORE UNCHANGED.
[2018-06-20 15:16] VITALS: BP 142/72
--- NOTE | 2018-06-20 15:30 | NUR ---
PT APPEARS TO BE SLEEPING IN SUPINE POSITION;NO S/S OF DISTRESS NOTED;RESPIRATIONS EVEN AND UNLABORED ON RA;IV SITE TO LFA REMAINS PATENT;TELE MONITORING IN PLACE;ASSESSMENT REMAINS UNCHANGED AT THIS TIME;FALL PRECAUTIONS IN PLACE WITH BED ALARM ON FOR SAFETY;CALL LIGHT IN REACH;WILL CONTINUE TO MONITOR
--- NOTE | 2018-06-20 19:00 | NUR ---
RECEIVED REPORT FROM NURSE GREG, PATIENT APPEARS TO BE SLEEPING WITH EYES CLOSED WITH EVEN UNLABORED BREATHING, ON BED ALARM, CALL LIGHT AT REACH
[2018-06-20 19:10] VITALS: BP 130/66
--- NOTE | 2018-06-20 20:00 | NUR ---
PATIENT ALERT AND ORIENTED X 2, ABLE TO MAKE NEEDS KNOWN, REMAINS ON TELE, WITH SALINE LOCK G20 ON LEFT FOREARM, LAST BM 06/20, PATIENT NOTED TO HAVE BRUISING AND HEMATOMA ON THE LEFT FOREHEAD, DENIES PAIN OR DISCOMFORT AT THIS TIME, INSTRUCTED ON THE USED OF INCENTIVE SPIROMETER, AND TO CALL FOR ASSISTANCE DURING TRANSFER, BED ALARM IN PLACE.
--- NOTE | 2018-06-20 23:28 | NUR ---
PATIENT ASSISTED TO COMMODE, AND ASSISTED BACK IN BED, NEW PERIPHERAL IV LINE STARTED G22 ON THE LFA, PATENT AND FLUSHES WELL.
[2018-06-21 00:04] VITALS: BP 151/73
--- NOTE | 2018-06-21 04:32 | NUR ---
PATIENT APPEARS TO BE SLEEPING, WITH EVEN UNLABORED BREATHING, REMAINS ON BED ALARM, CALL LIGHT AT REACH.
[2018-06-21 04:34] VITALS: BP 145/69
--- NOTE | 2018-06-21 07:05 | NUR ---
REPORT RECEIVED FROM HAYDEE ZEPEDA;PT OOB RESTING IN RECLINER REQUESTING TO GET BACK INTO BED;INTRODUCED SELF TO PT AND POC DISCUSSED,ENCOURAGED PT TO REMAIN IN RECLINER UNTIL BREAKFAST IS FINISHED AND RE-EDUCATED ON THE IMPORTANCE OF GETTING OUT OF BED THROUGHOUT THE DAY;RESPIRATIONS EVEN AND UNLABORED ON RA;TELE MONITORING IN PLACE;PT DENIES ANY ADDITIONAL NEEDS AND IS ENCOURAGED TO CALL FOR ASSISTANCE IF NEEDED;FALL PRECAUTIONS IN PLACE WITH BED ALARM ON FOR SAFETY;CALL LIGHT IN REACH;WILL CONTINUE TO MONITOR
[2018-06-21 08:09] VITALS: BP 120/72
--- NOTE | 2018-06-21 08:10 | NUR ---
PT OOB RESTING IN RECLINER, A&O X3;VS OBTAINED AND ASSESSMENT COMPLETED;PT DENIES ANY CURRENT PAIN OR DISCOMFORTS,PAIN SCALE AND REPORTING EDUCATED;RESPIRATIONS EVEN AND UNLABORED,SHALLOW ON RA;ABDOMEN SOFT ON PALPATION AND ACTIVE IN ALL 4 QUADRANTS;MIDLINE INCISION DRESSING CDI;DISCOLRATION NOTED TO SCROTUM; HEMATOMA AND BRUISING NOTED TO LEFT SIDE ON FACE;STRONG PEDAL PULSES;#22G TO LEFT FOREARM FLUSHED AND PATENT,SITE APPEARS HEALTHY;TELE MONITORING IN PLACE;PT RE-POSITIONED BACK INTO BED PER REQUEST WITH A WEAK GAIT AND 1 PERSON ASSIST;FALL PRECAUTIONS REMAIN IN PLACE WITH BED ALARM PLACED ON FOR SAFETY;CALL LIGHT IN REACH;WILL CONTINUE TO MONITOR
[2018-06-21 11:03] VITALS: BP 127/72
--- NOTE | 2018-06-21 11:09 | NUR ---
Mr. Gallego was in semi fowlers position as entered room. Pt. agreed to participate in therapy. Supine to sit (SBA) VC for proper way to swing legs over bedside. Sit to stand (SBA) VC for correct hand placement as he ascends to a standing position. Gait training pt. ambulated 75 ft. (CGA) unsteady on feet for first couple of steps, VC for correct placement of RW closer to body. Stand to sit (SBA) VC for correct handplacement as he descends to a seated position. Sit to supine (SBA) w/ slight help bringing LE over bedside. Tray table placed by pt. side call blakely turned on as exited room. am pac 6 score is 17.
--- NOTE | 2018-06-21 11:25 | NUR ---
PT OOB RESTING IN RECLINER WITH SPOUSE AT BEDSIDE;RESPIRATIONS EVEN AND UNLABORED ON RA;PT DENIES ANY CURRENT PAIN OR NEEDS;TELE MONITORING IN PLACE;IV SITE TO LFA REMAINS PATENT;PT DENIES ANY ADDITIONAL NEEDS AT THIS TIME AND IS ENCOURAGED TO CALL FOR ASSISTANCE IF NEEDED;FALL PRECAUTIONS IN PLACE WITH BED ALARM ON FOR SAFETY;CALL LIGHT IN REACH;WILL CONTINUE TO MONITOR
[2018-06-21 15:01] VITALS: BP 130/71
--- NOTE | 2018-06-21 16:00 | NUR ---
PT APPEARS TO BE SLEEPING IN SUPINE POSITION WITH SPOUSE AT BEDSIDE;RESPIRATIONS EVEN AND UNLABORED ON RA;NO S/S OF DISTRESS NOTED;TELE MONITORING IN PLACE;ALL SAFETY PRECAUTIONS REINFORCED WITH BED ALARM ON FOR SAFETY;CALL LIGHT IN REACH;WILL CONTINUE TO MONITOR
[2018-06-21] MEDS ORDERED: PANTOPRAZOLE SO40 M1 PO (16:06)
[2018-06-21] MEDS ORDERED: MIRTAZAPINE15 MG PO (16:06)
[2018-06-21] MEDS ORDERED: TRAMADOL HCL50 MG PO (16:07)
--- NOTE | 2018-06-21 16:50 | NUR ---
PT EDUCATED ON D/C PLAN TO [facility] AND VERBALIZES UNDERSTANDING;APPROX ETA FOR [facility] 30MINS;IV SITE REMOVED WITH CATHETER INTACT;TELE MONITORING REMOVED;PT AND SPOUSE DENY ANY ADDITIONAL NEEDS;AWAITING MEDICAL TRANSPORT.
--- NOTE | 2018-06-21 17:06 | NUR ---
REPORT CALLED TO HAYDEE WATERMAN AT [facility].
--- NOTE | 2018-06-21 17:15 | NUR ---
Discharge instructions given. Patient verbalizes understanding of same. Discharged in stable condition [facility] with *Other. All belongings sent with pt.
== END 2018-06-21 17:12 | DRG 330 ==
LOC: MS2 10:24
PROVIDERS: Internal Medicine; Nurse Practitioner Family; Surgery; ADMIT Internal Medicine; ATTEND Internal Medicine Nephrology
PROC: 0DJ08ZZ Inspection of Upper Intestinal Tract, Via Natural or Artificial Opening Endoscopic (ICD-10-PCS; 2018-06-06)
PROC: 0DBH8ZX Excision of Cecum, Via Natural or Artificial Opening Endoscopic, Diagnostic (ICD-10-PCS; 2018-06-06)
PROC: 0W3P8ZZ Control Bleeding in Gastrointestinal Tract, Via Natural or Artificial Opening Endoscopic (ICD-10-PCS; 2018-06-06)
PROC: 0T9B70Z Drainage of Bladder with Drainage Device, Via Natural or Artificial Opening (ICD-10-PCS; 2018-06-06)
PROC: 30233N1 Transfusion of Nonautologous Red Blood Cells into Peripheral Vein, Percutaneous Approach (ICD-10-PCS; 2018-06-06)
PROC: 30233N1 Transfusion of Nonautologous Red Blood Cells into Peripheral Vein, Percutaneous Approach (ICD-10-PCS; 2018-06-06)
PROC: 0DTF0ZZ Resection of Right Large Intestine, Open Approach (ICD-10-PCS; principal; 2018-06-07)
PROC: 0WJP4ZZ Inspection of Gastrointestinal Tract, Percutaneous Endoscopic Approach (ICD-10-PCS; 2018-06-07)
PROC: 0WBF0ZZ Excision of Abdominal Wall, Open Approach (ICD-10-PCS; 2018-06-07)
PROC: 30233N1 Transfusion of Nonautologous Red Blood Cells into Peripheral Vein, Percutaneous Approach (ICD-10-PCS; 2018-06-08)
PROC: 30233N1 Transfusion of Nonautologous Red Blood Cells into Peripheral Vein, Percutaneous Approach (ICD-10-PCS; 2018-06-08)
PROC: 30233N1 Transfusion of Nonautologous Red Blood Cells into Peripheral Vein, Percutaneous Approach (ICD-10-PCS; 2018-06-10)
PROC: 30233N1 Transfusion of Nonautologous Red Blood Cells into Peripheral Vein, Percutaneous Approach (ICD-10-PCS; 2018-06-10)
PROC: 30233N1 Transfusion of Nonautologous Red Blood Cells into Peripheral Vein, Percutaneous Approach (ICD-10-PCS; 2018-06-12)
PROC: 30233N1 Transfusion of Nonautologous Red Blood Cells into Peripheral Vein, Percutaneous Approach (ICD-10-PCS; 2018-06-12)
DX: C18.0 Malignant neoplasm of cecum (principal); K92.1 Melena; D75.81 Myelofibrosis; Z68.1 Body mass index [BMI] 19.9 or less, adult; C77.2 Secondary and unspecified malignant neoplasm of intra-abdominal lymph nodes; C79.89 Secondary malignant neoplasm of other specified sites; E46 Unspecified protein-calorie malnutrition; K91.840 Postprocedural hemorrhage of a digestive system organ or structure following a digestive system procedure; D50.0 Iron deficiency anemia secondary to blood loss (chronic); N40.0 Benign prostatic hyperplasia without lower urinary tract symptoms; K57.30 Diverticulosis of large intestine without perforation or abscess without bleeding; F17.200 Nicotine dependence, unspecified, uncomplicated; F32.9 Major depressive disorder, single episode, unspecified; K59.00 Constipation, unspecified; Y83.6 Removal of other organ (partial) (total) as the cause of abnormal reaction of the patient, or of later complication, without mention of misadventure at the time of the procedure; S59.911A Unspecified injury of right forearm, initial encounter; S00.83XA Contusion of other part of head, initial encounter; W06.XXXA Fall from bed, initial encounter; Y92.230 Patient room in hospital as the place of occurrence of the external cause; Z80.0 Family history of malignant neoplasm of digestive organs
CPT/HCPCS: G0378; G0379; J0131; J2060; P9016; Q9967; S0164

== ENCOUNTER 2018-06-26 08:37 | Inpatient (IN) | payer MEDICARE ==
[~2018-06-26] VITALS: Ht 172.7 cm; Wt 51.0 kg
[2018-06-26 07:03] VITALS: BP 125/63
[~2018-06-26 08:37] MED LIST: ALEVE220 M2 PO; MIRTAZAPINE15 MG PO; PANTOPRAZOLE SO40 M1 PO; TAMSULOSIN0.4 MG PO; TRAMADOL HCL50 MG PO
[2018-06-26 11:56] LABS: HEMATOCRIT 34.7 % (39.0-50.0); HEMOGLOBIN 10.7 g/dl (14.0-18.0); IMMATURE GRANULOCYTES 4.2 % (0.0-5.0); MEAN CELL VOLUME 85.5 fL CALC (80.0-100.0); MEAN CORPUSCULAR HGB 26.4 pG CALC (26.0-32.0); MEAN CORPUSCULAR HGB CONC 30.8 g/L CALC (32.0-36.0); PLATELET COUNT 221 thou/uL (130-400); RED BLOOD COUNT 4.06 mill/uL (4.70-6.10); RED CELL DISTRI WIDTH 19.6 % (11.5-15.5)
[2018-06-26 11:57] LABS: MANUAL DIFFERENTIAL YES
[2018-06-26 12:17] LABS: ALBUMIN 3.4 g/dL (3.2-5.0); ALKALINE PHOSPHATASE 112 u/l (38-126); ANION GAP 12 (6-22 (CALC)); BILIRUBIN, TOTAL 0.6 mg/dL (0.0-1.4); BUN 19 mg/dL (8-23); BUN/CREATININE RATIO 30 (12-20 (CALC)); CARBON DIOXIDE 25 mmol/l (22-30); CHLORIDE 105 mmol/l (95-108); CREATININE 0.6 mg/dL (0.7-1.3); GFR > 60 ML/MIN (>=60 (CALC)); GFR FOR AFR.AMER. > 60 ML/MIN (>=60 (CALC)); POTASSIUM 4.1 mmol/l (3.5-5.1); SGOT/AST 13 u/l (19-48); SODIUM 138 mmol/l (137-146); TOTAL PROTEIN 6.4 g/dL (6.3-8.2)
[2018-06-26 12:25] LABS: BAND 5 % (0-8)
[2018-06-26 15:49] VITALS: BP 128/66
[2018-06-26 19:00] VITALS: BP 132/57
== END 2018-06-26 21:40 | disposition hospice, inpatient (51) | DRG 177 ==
LOC: MS2 08:37
PROVIDERS: Surgery; ADMIT Internal Medicine Nephrology; ATTEND Internal Medicine Nephrology
DX: J69.0 Pneumonitis due to inhalation of food and vomit (principal); G93.41 Metabolic encephalopathy; D75.81 Myelofibrosis; C18.9 Malignant neoplasm of colon, unspecified; C78.02 Secondary malignant neoplasm of left lung; C78.7 Secondary malignant neoplasm of liver and intrahepatic bile duct; C78.89 Secondary malignant neoplasm of other digestive organs; R13.10 Dysphagia, unspecified; Z91.81 History of falling; Z51.5 Encounter for palliative care; Z66 Do not resuscitate; Z90.49 Acquired absence of other specified parts of digestive tract
CPT/HCPCS: Q9967; S0164